=== PATIENT | female | born 2000 | race Caucasian/White ===

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

== ENCOUNTER 2022-01-09 11:23 | Emergency (ER) | payer BC, MEDICAID, SELFPAY ==
[2022-01-09 11:25] VITALS: BP 100/55; PULSE 62; RESP 16; TEMP 36.6; O2SAT 98; BMI 22.4; BMI 23.2
[2022-01-09 11:41] LABS: Microscopic, Urine URINE MICROSCOPIC (MICROSCOPIC)
[2022-01-09 11:48] LABS: Appearance,Urine CLEAR (Clear); Bilirubin,Urine Negative (Negative); Blood, Urine Negative (Negative); Color,Urine YELLOW (Yellow); Glucose,Urine (UA) Negative (Negative); Ketones,Urine Negative (Negative); Leukocyte Esterase,Urine 2+ (Negative); Nitrate,Urine Negative (Negative); Protein,Urine Negative (Negative); Specific Gravity, Urine 1.025 (1.005-1.030); Urobilinogen,Urine 0.2 EU/dl (0.2)
--- NOTE | 2022-01-09 12:13 | PC.NURSE ---
heart tones 152
[2022-01-09 12:14] LABS: Bacteria,Urine Trace /lpf
[2022-01-09 12:17] LABS: Basophils % 0.7 % (0.1-2.0); Eosinophils # 0.1 K/mm3 (0.0-0.4); Hemoglobin 12.9 g/dL (12.2-16.2); Lymphocytes # 0.9 K/mm3 (0.7-4.5); Lymphocytes % 17.3 % (10-50); Mean Corpuscular HGB Conc 33.9 g/dL (31.8-35.4); Mean Corpuscular Hemoglobin 30.3 pg (27.0-31.2); Mean Corpuscular Volume 89.2 fl (81-99); Mean Platelet Volume 8.7 fl (7.4-10.4); Monocytes # 0.3 K/mm3 (0.1-1.0); Neutrophils % 75.9 % (37.0-80.0); Platelet Count 254 K/mm3 (142-424); Red Blood Count 4.26 M/mm3 (4.20-5.40); White Blood Count 5.2 K/mm3 (4.5-13.0)
[2022-01-09 12:24] LABS: Chloride 101 mmol/L (98-107); Potassium 3.5 mmoL/L (3.5-5.1); Sodium 136 mmol/L (136-145)
[2022-01-09 12:26] LABS: Creatinine Clearance Estimated 206 mL/min (50-200); Estimated Glomerular Filt Rate 206 ml/min (>60); GFR (African American) 249 ML/MIN (>60)
[2022-01-09 12:27] LABS: Alanine Aminotransferase 22 U/L (12-78); Albumin/Globulin Ratio 1.4 (1.1-1.8); Alkaline Phosphatase 66 U/L (38-126); Anion Gap 12.5 mEq/L (5-15); Aspartate Amino Transferase 28 U/L (14-36); Calcium 8.5 mg/dl (8.4-10.2); Carbon Dioxide 26 mmol/L (22.0-30.0); Globulin 2.8 g/dL (1.3-3.2); Glucose 80 mg/dl (74-100); Lipase 31 U/L (23-300); Total Protein,Serum 6.8 g/dl (6.3-8.2)
[2022-01-09 12:30] LABS: Bilirubin,Total < 0.1 mg/dl (0.2-1.3); Blood Urea Nitrogen < 2 mg/dl (7-17)
--- NOTE | 2022-01-09 12:31 | US_ITS ---
FINAL REPORT CLINICAL HISTORY: epigastric pain, 15 weeks FINDINGS: Sonographic images of the right upper quadrant were obtained. The pancreas is partially obscured.The liver has an unremarkable appearance. The gallbladder is collapsed without well-defined gallstones. There is no evidence of biliary ductal dilatation.The common duct measures 2 mm. Limited images of the right kidney are unremarkable. IMPRESSION: Gallbladder is collapsed without well-defined gallstones. Reviewed, Interpreted and Dictated by Braden Burrell III, MD Transcribed by Nneka John Authenticated and [facility]
--- NOTE | 2022-01-09 12:31 | HMH.EDGENADL ---
Discharge Plan Disposition Patient Disposition: Home, Self-Care Condition: Good Prescriptions Prescriptions: No Action PNV cmb#95-ferrous fumarate-FA 28 mg iron- 800 mcg tablet 1 tab PO DAILY promethazine 25 mg tablet 25 mg PO TID PRN (Reason: nausea and vomiting) Qty: 20 2RF Referrals Follow up/Referrals: Provider,Referral, [Primary Care Provider] - See instructions Activity Restrictions/Add. Instructions Additional Instructions/Restrictions: Low-fat diet. Additional instructions for ABDOMINAL PAIN: See your WOOL BRUSHER as soon as possible for further evaluation. Return immediately if worsening abdominal pain, vomiting, shortness of breath, fever, vomiting of blood or abdominal distention. Clinical Impressions Clinical Impression: Biliary colic, Instructions Patient Instructions: DI for Acute Abdominal Pain Discharge ED Provider: Colt Zhu General Adult HPI General Chief complaint: Abdominal Pain Stated complaint: abdominal pain, 15 weeks Time Seen by Provider: 01/09/22 12:15 Mode of Arrival: Ambulatory Source of Information: Patient Limitations: No Limitations Description of Symptoms (Recalled from ER Triage Doc. by RN): to ed per pvt car with c/o upper, epigastric pain x several months. pt currently approx 15 weeks preg states she has seen academic affairs assistant for same c/o called office today and told to come to ed for eval. pt c/o nausea. pt denies any fever,chills, vomiting, lower abd pain or vag discharge. pt G2, P1, AB0. History of Present Illness HPI narrative: Patient has epigastric pain. States that it has been present ever since she woke up this morning, but seems to be improving now. Associated with nausea, but no vomiting. She has been having similar episodes of pain ever since she got 15 weeks ago. She says she gets episodes 1-3 times per week, usually only lasting 10 to 15 minutes. This is the longest episode. She has seen her WOOL BRUSHER and discussed the abdominal pain. She says that she was told to take Tums and that it might be reflux. She has tried that without relief. Last oral intake 7 PM last night. Related Data Home Medications Medication Instructions Recorded Confirmed vit no.95-ferrous 1 tab PO DAILY 11/29/21 12/27/21 fumarate 28 mg-folic acid 800 mcg tablet Previous Rx's Medication Instructions Recorded promethazine 25 mg tablet 25 mg PO TID PRN nausea and 11/29/21 vomiting #20 tabs Allergies Allergy/AdvReac Type Severity Reaction Status Date / Time No Known Allergies Allergy Verified 12/27/21 19:13 [facility] Medical History (Updated 01/09/22 @ 13:29 by Colt Zhu MD) Rubella non-immune status, antepartum Teen Social History Smoking Status: Never smoker alcohol intake: never substance use type: denies use current occupational status: unemployed Travel in the last 8 weeks: None ROS Obtained: Yes Systems reviewed as appropriate & no additional complaints except as documented Constitutional Constitutional: Denies fever(s) Gastrointestinal Gastrointestingal: Reports abdominal pain and nausea; Denies constipation, diarrhea or vomiting Genitourinary Female Genitourinary: Denies difficulty voiding, Denies dysuria and Denies flank pain Musculoskeletal Musculoskeletal: Denies numbness Neurologic Neurologic: Denies numbness Physical Exam General General appearance: alert and in no apparent distress Head Head exam: atraumatic and normocephalic Eye Eye exam: Present normal appearance and EOMI ENT ENT exam: Present mucous membranes moist Neck Neck exam: Present normal inspection and trachea midline Chest Chest inspection: Present normal inspection and symmetric chest wall rise Respiratory Respiratory exam: Present normal lung sounds bilaterally; Absent respiratory distress Cardiovascular Cardiovascular exam: Present regular
[2022-01-09 14:02] VITALS: BP 111/65; PULSE 78; RESP 16; TEMP 36.6; O2SAT 98
== END 2022-01-09 14:04 | disposition home or self-care (01) ==
PROVIDERS: Emergency Provider Emergency Medicine
DX: O26.892 Other specified pregnancy related conditions, second trimester (principal); K80.50 Calculus of bile duct without cholangitis or cholecystitis without obstruction; Z3A.15 15 weeks gestation of pregnancy
CPT/HCPCS: 76705; 80053; 81001; 83690; 85025; 87086; 99284

== ENCOUNTER → 2022-03-02 13:51 | Outpatient (CLI) | payer MEDICAID, SELFPAY ==
--- NOTE | 2022-03-02 13:51 | US_ITS ---
FINAL REPORT CLINICAL HISTORY: 20 week anatomy scan FINDINGS: There is a single live intrauterine gestation. Presentation is breech. The cervix is closed and measures 3.2 cm. Placenta is fundal, grade 1. movement is noted. heart rate is 149. Three-vessel cord with satisfactory umbilical cord insertion. Four-chamber heart is noted. brain and ventricles are unremarkable. Chest and diaphragm are unremarkable. ABDOMEN: Both kidneys are unremarkable. Stomach is unremarkable. SPINE: No anomalies identified. Both arms and legs noted. AMNIOTIC FLUID: Appropriate amount. MEASUREMENTS: ULTRASOUND AGE: 20 weeks 6 days. GESTATION AGE: 21 weeks 3 days. ESTIMATED WEIGHT: 389 g GROWTH PERCENTILE: 22 % BPD: 4.71 cm corresponding to 20 weeks 2 days. OFD: 6.44 cm corresponding to 21 weeks 3 days. HC: 17.72 cm corresponding to 20 weeks 2 days. AC: 15.46 cm corresponding to 20 weeks 5 days. FL: 3.65 cm corresponding to 21 weeks 5 days. CEREBELLUM: 2.08 cm corresponding to 21 weeks 1 day. HUMERUS: 3.45 cm corresponding to 21 weeks 6 days. HC/AC: 1.15 CI: 73% FL/BPD: 77% FL/AC: 24% IMPRESSION: Single living IUP with an ultrasound age of 20 weeks 6 days. Reviewed, Interpreted and Dictated by Braden Burrell III, MD Transcribed by Alecia Lucero Authenticated and [facility]
== END ==
PROVIDERS: PCP Obstetrics & Gynecology; Visit Provider Obstetrics & Gynecology
DX: Z34.90 Encounter for supervision of normal pregnancy, unspecified, unspecified trimester (principal); Z3A.20 20 weeks gestation of pregnancy
CPT/HCPCS: 76811

== ENCOUNTER → 2022-04-06 14:47 | Outpatient (CLI) | payer MEDICAID, SELFPAY ==
[2022-04-06 15:15] LABS: Basophils % 0.5 % (0.1-2.0); Eosinophils % 0.3 % (0.1-12.0); Hematocrit 33.5 % (37.0-47.0); Hemoglobin 11.2 g/dL (12.2-16.2); Lymphocytes # 1.5 K/mm3 (0.7-4.5); Lymphocytes % 21.8 % (10-50); Mean Corpuscular HGB Conc 33.4 g/dL (31.8-35.4); Mean Corpuscular Hemoglobin 28.7 pg (27.0-31.2); Mean Platelet Volume 8.2 fl (7.4-10.4); Monocytes # 0.3 K/mm3 (0.1-1.0); Monocytes % 3.9 % (1.7-9.3); Neutrophils # 5.2 K/mm3 (1.8-7.8); Neutrophils % 73.6 % (37.0-80.0); Platelet Count 318 K/mm3 (142-424); Red Cell Distribution Width 12.9 % (11.5-17.5)
[2022-04-06 15:54] LABS: Glucose,Fasting 66 mg/dl (74-100)
[2022-04-06 16:41] LABS: Glucose 1 Hour 127 mg/dL (74-100)
== END ==
PROVIDERS: PCP Obstetrics & Gynecology; Visit Provider Obstetrics & Gynecology
DX: Z34.90 Encounter for supervision of normal pregnancy, unspecified, unspecified trimester (principal); Z3A.19 19 weeks gestation of pregnancy
CPT/HCPCS: 36415; 82951; 85025

== ENCOUNTER → 2022-04-19 13:45 | Outpatient (CLI) | payer MEDICAID, SELFPAY ==
--- NOTE | 2022-04-19 13:45 | US_ITS ---
FINAL REPORT TECHNIQUE: Transvaginal ultrasound imaging of the pelvis was obtained. CLINICAL HISTORY: amniotic fluid FINDINGS: A single, living intrauterine is identified. Average ultrasound age is 27 weeks 5 days gestation. Estimated weight is 2 lb 5 oz. fetus is in cephalic position. The placenta is grade 2 and anterior. MEHRAN is borderline at 9. Heart rate is identified at 127 beats per minute. HC/acromioclavicular: 1.16 CI: 77% FL/BPD: 75% FL/AC: 24% IMPRESSION: Borderline amniotic fluid index at 9.34. Reviewed, Interpreted and Dictated by Braden Burrell III, MD Transcribed by Loretta Chavez Authenticated and [facility]
== END ==
PROVIDERS: PCP Obstetrics & Gynecology; Visit Provider Obstetrics & Gynecology
DX: O28.8 Other abnormal findings on antenatal screening of mother (principal)
CPT/HCPCS: 76816

== ENCOUNTER → 2022-05-28 11:15 | Outpatient (CLI) | payer MEDICAID, SELFPAY ==
[2022-05-28 11:26] LABS: Fetal Membrane Rupture (Rapid) Negative (Negative)
== END ==
PROVIDERS: Visit Provider Obstetrics & Gynecology
DX: Z34.90 Encounter for supervision of normal pregnancy, unspecified, unspecified trimester (principal)
CPT/HCPCS: 84112

== ENCOUNTER 2024-03-02 10:13 | Outpatient (CLI) | payer MEDICAID, SELFPAY | END 2024-03-02 23:59 | disposition home or self-care (01) | LOC: LAB.DROPOF 03-03 10:13 | PROVIDERS: PCP Obstetrics & Gynecology; Visit Provider Obstetrics & Gynecology | DX: Z34.90 Encounter for supervision of normal pregnancy, unspecified, unspecified trimester (principal); Z3A.23 23 weeks gestation of pregnancy | CPT/HCPCS: 87086 ==

== ENCOUNTER 2024-03-06 12:16 | Outpatient (CLI) | payer MEDICAID, SELFPAY ==
[2024-03-06 12:44] LABS: Basophils % 0.3 % (0.1-2.0); Eosinophils % 0.6 % (0.1-12.0); Hemoglobin 12.3 g/dL (12.2-16.2); Lymphocytes # 1.3 K/mm3 (0.7-4.5); Lymphocytes % 23.2 % (10-50); Mean Corpuscular HGB Conc 35.2 g/dL (31.8-35.4); Mean Corpuscular Hemoglobin 30.4 pg (27.0-31.2); Mean Corpuscular Volume 86.3 fl (81-99); Mean Platelet Volume 8.3 fl (7.4-10.4); Monocytes # 0.2 K/mm3 (0.1-1.0); Monocytes % 3.9 % (1.7-9.3); Neutrophils # 4.1 K/mm3 (1.8-7.8); Platelet Count 235 K/mm3 (142-424); Red Blood Count 4.06 M/mm3 (4.20-5.40); Red Cell Distribution Width 13.4 % (11.5-17.5); White Blood Count 5.7 K/mm3 (4.8-10.8)
[2024-03-06 15:30] LABS: HIV (1&2) Antibody Rapid NONREACTIVE (NONREACTIVE)
[2024-03-08 07:27] LABS: Rubella Antibodies, IgG <0.90 index (Immune >0.99)
[2024-03-08 09:24] LABS: HCV Ab Non Reactive (Non Reactive); Hepatitis B Surface Antigen Negative (Negative)
== END 2024-03-06 23:59 | disposition home or self-care (01) ==
LOC: LAB 12:17
PROVIDERS: PCP Nurse Practitioner Family; Visit Provider Obstetrics & Gynecology
DX: Z34.90 Encounter for supervision of normal pregnancy, unspecified, unspecified trimester (principal)
CPT/HCPCS: 36415; 85025; 86762; 86803; 86850; 87340; 87389

== ENCOUNTER 2024-04-17 09:52 | Outpatient (CLI) | payer MEDICAID, SELFPAY ==
--- NOTE | 2024-04-17 09:53 | US_ITS ---
PROCEDURE: US OB /MATERNAL DETAIL CLINICAL INDICATION: 20 wk + Anatomy Scan-US OB Complete COMPARISON: FINDINGS: Transabdominal sonographic images of the pelvis were obtained. From her established due date she is 20 weeks 5 days. Single viable intrauterine gestation. Breech position. Placenta: Anteriorplacenta grade 1. There is an average amount of fluid. The cervix appears satisfactory. Closed and measuring 3.05 cm in length. Complete survey performed and was unremarkable on the submitted images as in PACS. No discrete anomalies identified on survey imaging by technologist. Active fetus. Three-vessel cord with satisfactory umbilical cord insertion. 4- chamber heart noted. Situs, aortic arch, LVOT, RVOT, three-vessel view appear normal. There is an intracardiac echogenic foci measuring 2.4 mm in size Survey of brain & ventricles Unremarkable. Cerebellum, thalamus, choroid plexus, cisterna magna appear normal. Face and neck survey unremarkable. Profile, nasion, lips and nose appeared normal. Diaphragm and chest views unremarkable. Abdomen: Both kidneys noted and unremarkable. Stomach and bladder noted and satisfactory. Spine: Survey of the spine satisfactory with no anomalies identified nor imaged. Cervical, thoracic, lower spine appear normal. Both arms and legs noted. Amniotic Fluid: Adequate. MVP 4.83 cm Measurements: Average ultrasound age 20weeks 4days. Estimated due date by ultrasound age 0508/31/2024. Estimated weight 378g BPD = 19weeks 6days HC = 20weeks 1day AC = 21weeks 3days FL = 20weeks 4days Growth Percentile= 50 Heart Rate = 136bpm Cerebellum = 19weeks 2days Humerus = 21weeks 3days HC/AC is 1.08 FL/BPD is 0.73 FL/AC is 0.21 IMPRESSION: 1. Viable fetus in the breech presentation with an anterior placenta grade 1. 2. The fluid is within normal limits with an MVP 4.83 cm. 3. Anatomical scan appears normal. 4. There is a 2.4 mm intracardiac echogenic foci within the left ventricle and would suggest follow-up at 28 weeks. 5. biometry is consistent with a dates. Dictated by: Hill Duffy MD 04/17/2024 18:45 Hill Duffy MD in [place] 04/17/2024 18:45
== END 2024-04-17 23:59 | disposition home or self-care (01) ==
LOC: RAD 09:53
PROVIDERS: PCP Nurse Practitioner Family; Visit Provider Obstetrics & Gynecology
DX: O99.332 Smoking (tobacco) complicating pregnancy, second trimester (principal); Z3A.20 20 weeks gestation of pregnancy; Z36.3 Encounter for antenatal screening for malformations; Z13.71 Encounter for nonprocreative screening for genetic disease carrier status
CPT/HCPCS: 76811

== ENCOUNTER 2024-04-22 10:37 | Outpatient (CLI) | payer MEDICAID, SELFPAY ==
[2024-04-22 10:55] LABS: Basophils % 0.4 % (0.1-2.0); Eosinophils % 0.3 % (0.1-12.0); Hematocrit 34.3 % (37.0-47.0); Hemoglobin 11.4 g/dL (12.2-16.2); Lymphocytes # 1.3 K/mm3 (0.7-4.5); Lymphocytes % 19.6 % (10-50); Mean Corpuscular HGB Conc 33.2 g/dL (31.8-35.4); Mean Corpuscular Volume 87.3 fl (81-99); Mean Platelet Volume 9.9 fl (7.4-10.4); Monocytes # 0.4 K/mm3 (0.1-1.0); Neutrophils # 4.9 K/mm3 (1.8-7.8); Neutrophils % 73.4 % (37.0-80.0); Platelet Count 241 K/mm3 (142-424); Red Blood Count 3.93 M/mm3 (4.20-5.40); Red Cell Distribution Width 12.3 % (11.5-17.5); White Blood Count 6.7 K/mm3 (4.8-10.8)
[2024-04-22 11:41] LABS: Alanine Aminotransferase 17 U/L (12-78); Albumin Level 3.7 g/dl (3.5-5.0); Alkaline Phosphatase 63 U/L (38-126); Anion Gap 11.1 mEq/L (5-15); Aspartate Amino Transferase 26 U/L (14-36); Bilirubin,Direct 0.1 mg/dl (0.0-0.4); Bilirubin,Indirect 0.1 mg/dL (0.0-0.9); Bilirubin,Total 0.2 mg/dl (0.2-1.3); Bilirubin,Unconjugated 0.1 mg/dL (0.0-1.1); Blood Urea Nitrogen 8 mg/dl (7-17); Calcium 8.8 mg/dl (8.4-10.2); Carbon Dioxide 23 mmol/L (22.0-30.0); Chloride 104 mmol/L (98-107); Estimated Glomerular Filt Rate 201 ml/min (>60); GFR (African American) 244 ML/MIN (>60); Glucose 65 mg/dl (74-100); Potassium 4.1 mmoL/L (3.5-5.1); Sodium 134 mmol/L (136-145); Total Protein,Serum 6.2 g/dl (6.3-8.2)
[2024-04-22 11:57] LABS: Free T4 (Free Thyroxine) 0.85 ng/dl (0.78-2.19)
[2024-04-22 12:12] LABS: Thyroid Stimulating Hormone 2.09 uIU/mL (0.465-4.68)
== END 2024-04-22 23:59 | disposition home or self-care (01) ==
LOC: LAB 10:38
PROVIDERS: PCP Nurse Practitioner Family; Visit Provider Physician Assistant
DX: R42 Dizziness and giddiness (principal)
CPT/HCPCS: 36415; 80048; 80076; 84439; 84443; 85025

== ENCOUNTER 2024-05-01 08:37 | Outpatient (CLI) | payer MEDICAID, SELFPAY ==
--- NOTE | 2024-05-01 08:42 | CA_ITS ---
APPROVED REPORT EXAM: Comprehensive 2D, Doppler, and color-flow Echocardiogram Food And Nutrition Teacher: FELECIA Santoyo, RVS Ht: 5 ft 2 in Wt: 118lbs BSA: 1.53 BP: 91/55 mmHg Rhythm: Bradycardia Indications: 21weeks , 3rd , Syncope, Smoker, murmur, bradycardia, hypotension 2D Dimensions Left Atrium 2.88 cm F: 2.7 - 3.8 LA Volume 42.10 mL LA Volume Index 27.100228 mL/m2 (M/F) 16-34 M-Mode Dimensions RVDd 2.18 cm (0.9-2.6) LA Diam 2.65 cm (1.9-4.0) LVDd 4.27 cm (3.5-5.7) LVDs 2.87 cm (3.5-5.7) IVSd 0.78 cm (0.6-1.1) PWd 0.52 cm (0.6-1.1) EF (Teich) 61.60% EPSs 0.52 cm FS 32.80% EDV (Teich) 81.70 mL TAPSE 2.22 (<1.7) ESV (Teich) 31.40 mL LV Diastology E Decel Time 250 (160-240 msec) E/A Ratio 2.96 MED A' 8.40 cm/s LAT A' 8.70 cm/s Aortic Valve DANAE Index 0.94 cm2/m2 AoV Peak Josue. 176.0 (50-130 cm/s) AO Peak GR. 12.40 mmHg AO Mean GR. 6.00 (<5 mmHg) AO VTI 36.9 (18-25 cm) DANAE (VTI) 1.46 (2.5-4.5 cm2) Mitral Valve MV A Velocity 31.0 (40-130 cm/s) E/A Ratio 2.96 Pulmonary Valve PV Peak Velocity 115.0 (50-150 cm/s) Tricuspid Valve TR P. Velocity 206.00 cm/s RAP Estimate 10.00 mmHg RVSP 27.10 mmHg Left Ventricle The left ventricle is normal size. The left ventricular systolic function is normal. The left ventricular ejection fraction is within the normal range. There is normal left ventricular wall thickness. There is normal LV segmental wall motion. The left ventricular diastolic function is normal. LVEF is 60%. Right Ventricle The right ventricle is normal size. The right ventricular systolic function is normal. Atria The left atrium size is normal. The right atrium size is normal. There is no Doppler evidence of interatrial shunt. Aortic Valve The aortic valve opens well. There is no aortic valvular stenosis. No aortic regurgitation is present. Mitral Valve The mitral valve is normal in structure. No evidence of mitral valve stenosis. Trace mitral regurgitation. Tricuspid Valve Tricuspid valve is grossly normal in structure and function. Mild tricuspid regurgitation. RVSP is normal. Pulmonic Valve The pulmonary valve is normal in structure. Trace pulmonic regurgitation. Great Vessels The aortic root is normal in size. The ascending aorta is normal in size. IVC is normal in size and collapses >50% with inspiration. Pericardium There is no pericardial effusion. Other Information Study Quality: Adequate Conclusion Normal biventricular systolic function. Mild TR. Electronically signed by : Ana Rosa Schreiber MD 05/09/2024 23:30:42
== END 2024-05-01 23:59 | disposition home or self-care (01) ==
LOC: RT 08:38
PROVIDERS: PCP Nurse Practitioner Family; Visit Provider Physician Assistant
DX: I36.1 Nonrheumatic tricuspid (valve) insufficiency (principal); R42 Dizziness and giddiness; R01.1 Cardiac murmur, unspecified
CPT/HCPCS: 93306

== ENCOUNTER 2024-05-25 10:05 | Outpatient (CLI) | payer MEDICAID, SELFPAY ==
[2024-05-25 11:36] LABS: Glucose 1 Hour 85 mg/dL (74-100)
[2024-05-25 11:37] LABS: Basophils % 0.5 % (0.1-2.0); Eosinophils % 0.6 % (0.1-12.0); Hematocrit 34.6 % (37.0-47.0); Hemoglobin 11.3 g/dL (12.2-16.2); Lymphocytes # 1.4 K/mm3 (0.7-4.5); Lymphocytes % 22.3 % (10-50); Mean Corpuscular HGB Conc 32.7 g/dL (31.8-35.4); Mean Corpuscular Hemoglobin 28.4 pg (27.0-31.2); Mean Corpuscular Volume 86.9 fl (81-99); Mean Platelet Volume 10.2 fl (7.4-10.4); Monocytes # 0.4 K/mm3 (0.1-1.0); Monocytes % 6.9 % (1.7-9.3); Neutrophils # 4.3 K/mm3 (1.8-7.8); Neutrophils % 69.2 % (37.0-80.0); Platelet Count 221 K/mm3 (142-424); Red Blood Count 3.98 M/mm3 (4.20-5.40); Red Cell Distribution Width 12.5 % (11.5-17.5); White Blood Count 6.2 K/mm3 (4.8-10.8)
[2024-05-25 15:12] LABS: RPR W/RFX Titers Nonreactive (Nonreactive)
== END 2024-05-25 23:59 | disposition home or self-care (01) ==
LOC: LAB 10:06
PROVIDERS: PCP Nurse Practitioner Family; Visit Provider Obstetrics & Gynecology
DX: R42 Dizziness and giddiness (principal); R06.02 Shortness of breath; R53.83 Other fatigue; R20.0 Anesthesia of skin; R20.2 Paresthesia of skin
CPT/HCPCS: 36415; 82947; 85025; 86592; 93270

== ENCOUNTER 2024-06-03 11:42 | Outpatient (CLI) | payer MEDICAID, SELFPAY ==
[2024-06-03 12:01] VITALS: BMI 23.3
[2024-06-03] MEDS: LACTATED RINGERS 1000ML 1,000 ML 999 ML IV (12:07)
[2024-06-03 12:08] VITALS: BP 125/67; PULSE 82; RESP 17; TEMP 36.8; O2SAT 100
--- NOTE | 2024-06-03 12:30 | US_ITS ---
PROCEDURE: US OB TRANSVAGINAL CLINICAL INDICATION: Fall COMPARISON: US US OB /MATERNAL DETAIL from 04/17/2024 FINDINGS: Transvaginal sonographic images of the cervix were obtained. From her established due date she is 27weeks 4days. The following parameters are obtained: Viable Fetus in the cephalic presentation . Transvaginal images of the cervix were obtained. The cervix measures 2.06 cm-2.40 cm. Cervix appears closed. There is no funneling or opening of the internal os. There is no change in the cervical length with Valsalva maneuver. IMPRESSION: 1. Fetus in the cephalic presentation. 2. The cervix measures 2.06-2.40 cm transvaginally. 3. There is no significant funneling of the cervix. 4. The cervix remains the same length during Valsalva. Dictated by: Hill Duffy MD 06/03/2024 13:39 Hill Duffy MD in [place] 06/03/2024 13:39
--- NOTE | 2024-06-03 12:30 | US_ITS ---
PROCEDURE: US OB FOLLOW UP CLINICAL INDICATION: Fall COMPARISON: US US OB /MATERNAL DETAIL from 04/17/2024 US US OB TRANSVAGINAL from 06/03/2024 FINDINGS: Transabdominal sonographic images of the pelvis were obtained. The following parameters are obtained: From her established due date she is 27weeks 4days Viable fetus in the cephalic presentation with a lateral posterior placenta grade 2. The cervix measures 2.3 cm transvaginally. Estimated weight 987 grams, 2 lb 3 oz Average ultrasound age 27 weeks 3 days. heart rate: 132bpm bpm. BPD: 28weeks 3days, 66 percentile HC: 27weeks 5days, 22 percentile AC: 26weeks 4days, 14 percentile FL: 26weeks 6days, 16 percentile HC/AC: 1.15 FL/BPD: 0.7 FL/AC: 0.23 Growth percentile: 14 Amniotic fluid index: 11.86cm, MVP 4.32 cm. No obvious anomalies evident. profile seen, stomach, bladder, kidneys, three-vessel cord, four chamber heart appear normal. IMPRESSION: 1. Viable fetus in the cephalic presentation with the lateral posterior placenta 2. 2. The fluid is within normal limits with amniotic fluid index 11.86 cm, MVP 4.32 cm. 3. There has been good interval growth with the fetus currently 14th percentile. 4. Limited anatomical scan appears normal. 5. Fetus is active. Dictated by: Hill Duffy MD 06/03/2024 13:45 Hill Duffy MD in [place] 06/03/2024 13:45
[2024-06-03] MEDS: ONDANSETRON 4MG/2ML VIAL 4 MG IV (13:32)
[2024-06-03 13:36] VITALS: BMI 23.3
== END 2024-06-03 16:54 | disposition home or self-care (01) ==
LOC: OBOUT 11:44 → OB 11:45
PROVIDERS: PCP Nurse Practitioner Family; Visit Provider Nurse Practitioner Obstetrics & Gynecology
DX: O9A.212 Injury, poisoning and certain other consequences of external causes complicating pregnancy, second trimester (principal); M25.552 Pain in left hip; W18.39XA Other fall on same level, initial encounter; Y92.012 Bathroom of single-family (private) house as the place of occurrence of the external cause; Z3A.27 27 weeks gestation of pregnancy; W54.1XXA Struck by dog, initial encounter
CPT/HCPCS: 76816; 76817; G0463; J2405; J7120

== ENCOUNTER 2024-06-06 13:03 | Outpatient (CLI) | payer MEDICAID, SELFPAY ==
[2024-06-06 13:44] VITALS: BP 118/72; PULSE 86; RESP 18; TEMP 36.7; O2SAT 100; BMI 23.0
--- NOTE | 2024-06-06 13:54 | ECG_ITS ---
APPROVED REPORT Exam: Resting ECG HR:73 bpm ECG Measurements Heart Rate 73 AXES ND 119 P 10 QRSd 90 QRS 93 QT 359 T 14 QTc 386 Conclusion SINUS RHYTHM WITH SINUS ARRHYTHMIA WITH SHORT ND INTERVAL BORDERLINE RIGHT AXIS DEVIATION [QRS AXIS > 90] BORDERLINE ECG UNCONFIRMED REPORT Electronically signed by : Anthony Scherer MD 06/07/2024 16:10:59
[2024-06-06 14:08] LABS: Basophils % 0.5 % (0.1-2.0); Eosinophils # 0.1 K/mm3 (0.0-0.4); Eosinophils % 0.8 % (0.1-12.0); Hematocrit 30.6 % (37.0-47.0); Hemoglobin 10.2 g/dL (12.2-16.2); Lymphocytes # 1.3 K/mm3 (0.7-4.5); Lymphocytes % 19.7 % (10-50); Mean Corpuscular HGB Conc 33.3 g/dL (31.8-35.4); Mean Corpuscular Hemoglobin 28.4 pg (27.0-31.2); Mean Corpuscular Volume 85.2 fl (81-99); Mean Platelet Volume 10.2 fl (7.4-10.4); Monocytes # 0.5 K/mm3 (0.1-1.0); Monocytes % 7.9 % (1.7-9.3); Neutrophils # 4.7 K/mm3 (1.8-7.8); Neutrophils % 70.3 % (37.0-80.0); Platelet Count 211 K/mm3 (142-424); Red Blood Count 3.59 M/mm3 (4.20-5.40); Red Cell Distribution Width 12.2 % (11.5-17.5); White Blood Count 6.6 K/mm3 (4.8-10.8)
[2024-06-06] MEDS: LACTATED RINGERS 1000ML 500 ML 999 ML IV (14:45)
[2024-06-06 14:51] LABS: Albumin Level 3.4 g/dl (3.5-5.0); Chloride 103 mmol/L (98-107); Potassium 4.1 mmoL/L (3.5-5.1); Sodium 133 mmol/L (136-145)
[2024-06-06 14:54] LABS: Alanine Aminotransferase 16 U/L (12-78); Albumin/Globulin Ratio 1.3 (1.1-1.8); Alkaline Phosphatase 82 U/L (38-126); Anion Gap 9.1 mEq/L (5-15); Aspartate Amino Transferase 26 U/L (14-36); Bilirubin,Total 0.2 mg/dl (0.2-1.3); Blood Urea Nitrogen 6 mg/dl (7-17); Calcium 8.9 mg/dl (8.4-10.2); Carbon Dioxide 25 mmol/L (22.0-30.0); Creatinine Clearance Estimated 201 mL/min (50-200); Estimated Glomerular Filt Rate 201 ml/min (>60); GFR (African American) 244 ML/MIN (>60); Globulin 2.6 g/dL (1.3-3.2); Glucose 77 mg/dl (74-100)
[2024-06-06 14:55] LABS: Magnesium 1.5 mg/dl (1.6-2.3)
== END 2024-06-06 16:00 | disposition home or self-care (01) ==
LOC: OBOUT 13:05 → OB 13:05
PROVIDERS: PCP Nurse Practitioner Family; Visit Provider Obstetrics & Gynecology
DX: O26.52 Maternal hypotension syndrome, second trimester (principal); R55 Syncope and collapse; Z3A.27 27 weeks gestation of pregnancy
CPT/HCPCS: 59025; 80053; 83735; 85025; J7120

== ENCOUNTER 2024-06-18 10:45 | Outpatient (CLI) | payer MEDICAID, SELFPAY ==
[2024-06-18 10:53] VITALS: BMI 23.8
[2024-06-18 11:35] LABS: Basophils % 0.3 % (0.1-2.0); Eosinophils % 0.2 % (0.1-12.0); Hematocrit 33.5 % (37.0-47.0); Hemoglobin 11.1 g/dL (12.2-16.2); Lymphocytes # 1.2 K/mm3 (0.7-4.5); Lymphocytes % 18.9 % (10-50); Mean Corpuscular HGB Conc 33.1 g/dL (31.8-35.4); Mean Corpuscular Volume 84.4 fl (81-99); Mean Platelet Volume 10.4 fl (7.4-10.4); Monocytes # 0.5 K/mm3 (0.1-1.0); Monocytes % 7.3 % (1.7-9.3); Neutrophils # 4.8 K/mm3 (1.8-7.8); Platelet Count 208 K/mm3 (142-424); Red Blood Count 3.97 M/mm3 (4.20-5.40); Red Cell Distribution Width 12.2 % (11.5-17.5); White Blood Count 6.6 K/mm3 (4.8-10.8)
[2024-06-18] MEDS: MVI, ADULT NO.1 WITH VIT K 10 ML, THIAMINE HCL 100 MG, MAGNESIUM SULFATE 2 GM in LACTAT... 125 ML IV (11:38)
[2024-06-18] MEDS: ONDANSETRON 4MG/2ML VIAL 4 MG IV (11:38)
[2024-06-18 11:40] LABS: Alanine Aminotransferase 17 U/L (12-78); Albumin Level 3.7 g/dl (3.5-5.0); Albumin/Globulin Ratio 1.3 (1.1-1.8); Alkaline Phosphatase 99 U/L (38-126); Amylase 112 U/L (30-110); Anion Gap 7.9 mEq/L (5-15); Aspartate Amino Transferase 26 U/L (14-36); Bilirubin,Total 0.2 mg/dl (0.2-1.3); Blood Urea Nitrogen 6 mg/dl (7-17); Calcium 8.2 mg/dl (8.4-10.2); Carbon Dioxide 24 mmol/L (22.0-30.0); Chloride 105 mmol/L (98-107); Creatinine Clearance Estimated 207 mL/min (50-200); Estimated Glomerular Filt Rate 201 ml/min (>60); GFR (African American) 244 ML/MIN (>60); Globulin 2.8 g/dL (1.3-3.2); Glucose 73 mg/dl (74-100); Lipase 53 U/L (23-300); Magnesium 1.6 mg/dl (1.6-2.3); Potassium 3.9 mmoL/L (3.5-5.1); Sodium 133 mmol/L (136-145); Total Protein,Serum 6.5 g/dl (6.3-8.2)
[2024-06-18 11:56] VITALS: BP 103/62; PULSE 65; RESP 16; TEMP 36.8; O2SAT 99; BMI 23.8
== END 2024-06-18 15:47 | disposition home or self-care (01) ==
LOC: OBOUT 10:48 → OB 10:49
PROVIDERS: PCP Nurse Practitioner Family; Visit Provider Obstetrics & Gynecology
DX: O21.2 Late vomiting of pregnancy (principal); Z3A.29 29 weeks gestation of pregnancy
CPT/HCPCS: 80053; 82150; 83690; 83735; 85025; G0463; J2405; J3411; J7120

== ENCOUNTER 2024-06-26 08:51 | Outpatient (CLI) | payer MEDICAID, SELFPAY | END 2024-06-26 23:59 | disposition home or self-care (01) | LOC: RT 08:52 | PROVIDERS: PCP Nurse Practitioner Family; Visit Provider Physician Assistant | DX: R00.0 Tachycardia, unspecified (principal) | CPT/HCPCS: 93270 ==

== ENCOUNTER 2024-07-01 12:54 | Outpatient (CLI) | payer MEDICAID, SELFPAY ==
--- NOTE | 2024-07-01 13:00 | US_ITS ---
PROCEDURE: US OB BIOPHYSICAL PROFILE CLINICAL INDICATION: hx of labor/Growth COMPARISON: US US OB FOLLOW UP from 06/03/2024 FINDINGS: Transabdominal sonographic images of the uterus were obtained. From her established due date she is 31weeks 4days. The following parameters are obtained: Viable Fetus in the cephalic presentation with and anterior placenta grade 2. Average ultrasound age is 31weeks 1day Estimated weight 1,560g, 3 lb 7 oz Cervix measures 2.67-2.86 cm. Measurements: heart Rate = 124bpm BPD = 32weeks 0 days, 51 percentile HC = 31weeks 5days, 16 percentile AC = 29weeks 3days, 4 percentile FL = 31weeks 2days, 26 percentile HC/AC is 1.14 FL/BPD is 0.75 FL/AC is 0.24 10 percentile Amniotic fluid index: 11.54cm, MVP 3.71 cm Qualitative AFV:2 Breathing movements: 2 Gross Body Movements: 2 Tone: 2 Biophysical profile score: 8 Doppler evaluation of the umbilical artery: SD ratio: 2.34-3.36. normal Resistive index: 0.63 No obvious anomalies evident.Kidneys, profile, bladder, stomach, three-vessel cord appear normal. IMPRESSION: 1. Viable fetus in the cephalic presentation with a posterior placenta grade 2. 2. The fluid is within normal limits with an amniotic fluid index 11.54 cm, MVP 3.71 cm. 3. Biophysical profile is 8/8 with good breathing movement and movement seen. 4. SD ratio is normal 2.34-3.36. 5. The fetus is currently 10th percentile. There is asymmetric growth resection. Abdominal circumference is 4th percentile and approximately 2 weeks behind. 6. Limited anatomical scan appears normal. Dictated by: Hill Duffy MD 07/01/2024 16:47 Hill Duffy MD in [place] 07/01/2024 16:47
[2024-07-01 14:06] VITALS: BP 124/66; PULSE 76; RESP 16; TEMP 36.7; O2SAT 100; BMI 23.6
[2024-07-01] MEDS: DEXTROSE 5%-LACTATED RINGERS 1,000 ML 999 ML IV (15:31)
== END 2024-07-01 18:00 | disposition home or self-care (01) ==
LOC: RAD 12:55 → OBOUT 13:58 → OB 13:58
PROVIDERS: PCP Nurse Practitioner Family; Visit Provider Nurse Practitioner Obstetrics & Gynecology
DX: O47.03 False labor before 37 completed weeks of gestation, third trimester (principal); Z3A.31 31 weeks gestation of pregnancy
CPT/HCPCS: 76816; 76819; 76820; G0463

== ENCOUNTER 2024-07-02 11:14 | Outpatient (CLI) | payer MEDICAID, SELFPAY ==
[2024-07-02 11:25] VITALS: BP 112/65; PULSE 67; RESP 18; TEMP 36.7; O2SAT 100
[2024-07-02] MEDS: BETAMETHASONE ACET/PHOS 6MG/ML 5ML MDV 12 MG IM (11:35)
== END 2024-07-02 11:38 | disposition home or self-care (01) ==
LOC: OBOUT 11:15
PROVIDERS: PCP Nurse Practitioner Family; Visit Provider Obstetrics & Gynecology
DX: O60.03 Preterm labor without delivery, third trimester (principal); Z3A.31 31 weeks gestation of pregnancy
CPT/HCPCS: 96372; J0702

== ENCOUNTER 2024-07-03 10:48 | Outpatient (CLI) | payer MEDICAID, SELFPAY ==
[2024-07-03] MEDS: BETAMETHASONE ACET/PHOS 6MG/ML 5ML MDV 12 MG IM (11:07)
== END 2024-07-03 11:10 | disposition home or self-care (01) ==
LOC: OBOUT 10:50
PROVIDERS: PCP Nurse Practitioner Family; Visit Provider Obstetrics & Gynecology
DX: O60.03 Preterm labor without delivery, third trimester (principal); Z3A.31 31 weeks gestation of pregnancy
CPT/HCPCS: 96372; J0702

== ENCOUNTER 2024-07-13 13:23 | Outpatient (CLI) | payer MEDICAID, SELFPAY ==
--- NOTE | 2024-07-13 13:45 | US_ITS ---
PROCEDURE: US OB BIOPHYSICAL PROFILE CLINICAL INDICATION: Needs 07/13/24 for IGUR with MEHRAN COMPARISON: US US OB /MATERNAL DETAIL from 04/17/2024 US US OB FOLLOW UP from 06/03/2024 US US OB TRANSVAGINAL from 06/03/2024 US US OB BIOPHYSICAL PROFILE from 07/01/2024 FINDINGS: Transabdominal sonographic images of the uterus were obtained. From her established due date she is 33weeks 2days. The following parameters are obtained: Viable Fetus in the cephalic presentation with an anterior placenta grade 2-3. Cervix measures 3.25 cm Measurements: heart Rate = 123bpm Amniotic fluid index: 10.05cm, MVP 4.02 cm Qualitative AFV:2 Breathing movements: 2 Gross Body Movements: 2 Tone: 2 Biophysical profile score: 8 No obvious anomalies evident.Kidneys, profile, stomach, bladder, four-chamber heart, three-vessel cord appear normal. IMPRESSION: 1. Viable fetus in the cephalic presentation with an anterior placenta grade 2-3. 2. The fluid is within normal limits with amniotic fluid index 10.05 cm, MVP 4.02 cm 3. Biophysical profile is 8/8 with good breathing movement and movement seen. 4. Limited anatomical scan appears normal. Dictated by: Hill Duffy MD 07/13/2024 14:13 Hill Duffy MD in [place] 07/13/2024 14:13
--- OUTSIDE RECORDS SUMMARY | 2024-07-16 20:30 | XMS_ITS | Continuity of Care Document ---
Author Organization [facility] Phone Care Team Providers Care Senior Python Developer Name Role Phone LYN HERNADEZ Unavailable LYN HERNADEZ Primary Care VINOD JANE Admitting VINOD JANE Primary Attending [phone] ALLERGIES AND ADVERSE REACTIONS ALLERGIES AND ADVERSE REACTIONS Code System Allergy Substance Adverse Reaction Date Reaction (Severity) Comment Status Reported By Updated By No Known Allergies [id number] on March 29, 2022 11:32:44 PM [facility] ASSESSMENTS ; PROBLEMS PATIENT PROBLEMS Code Description/Comments Category Status Upda alejandro By [id number] active [id number] on Jul 11:45:16 PM [facility] MEDICATIONS HOME MEDICATIONS Status RXNORM ND Medication Dose Route Frequency Dates Comments Reported By Updated By Active [id number] Metoprolol Tartrate Oral Tablet 25 MG 25.0 MG ORAL BID Last Dose: [id number] on July 08, 2024 12:15:47 AM [facility] DISCHARGE MEDICATIONS Status RXNORM NDC Medication Dose Route Frequency Dates Comments Physician Updated By No Discharge Medication Info rmation Available INPATIENT MEDICATIONS Status RXNORM ND Medication Dose Route Frequency Rat e Quantity Dates Comments Physician Updated By Sameer inued [id number] metoprolol tartrat (LOPRESSOR) 25 MG TABS 25.0 MG ORAL TWICE A DAY Start: July 08, 2024 12:00: 00 AM [facility] End: July 08, 2024 12:36: 00 AM [facility] BUCK Alfonso [id number] on July 09, 2024 4:25:00 AM [facility] SOCIAL HISTORY SOCIAL HISTORY SNOMED-CT Social History Element Description Effective Dates Offered Cessation Comment UpdatedBy [id number] Smoking Status Unknown If Ever Smoked SOCIAL HISTORY - Gender Sex: Female SOCIAL HISTORY - Status : status i nformation is not available Intention in Next Year: intention information is not available SOCIAL HISTORY - Sexual Behavior Sexual Orientation Gender Identity SNOMED-CT Description SNO MED -CT Description Activity Level No of Partners Partner Type UpdatedBy Information is not available VITAL SIGNS PATIENT VITAL SIGNS This section displays the mo st recent value for each vital sign as of July 10, 2024 12:49:03 PM [place] Loinc Code Vital Sign Activity Date Result Updated By 8302-2 Body height July 08, 2024 12:15:13 AM [place] 157.48 cm (62.0 in) [id number] on July 08, 2024 12:15:[place] [address]-1 Body mass index (BMI) [Ratio] July 08, 2024 12:15:13 AM [place] 23.79 kg/m2 [id number] on July 08, 2024 12:15:13 AM [facility] 3140-1 Body Surface Area Derived From Formula July 08, 2024 12:15:13 AM [place] 1.5921 m2 [id number] on July 08, 2024 12:15:13 [place] [address]-2 Body weight Measured July 08 12:15:13 AM [place] 59.0 kg (130.0 lb) [id number] on July 08, 2024 12:15:13 AM [facility] 8867-4 Heart rate July 08, 2024 12:01:00 AM UT 78 /min [id number] on July 08, 2024 12:02:22 AM [place] 8480-6 Systolic blood pressure July 08, 2024 12:01:00 AM [place] 120.0 mm[Hg] [id number] on July 08, 2024 12:02:22 AM [facility] PEDIATRIC GROWTH CHART - VITAL SIGNS This section displays Head C ircumference Percentile, Weight for Length Percentile and BMI Percentile Loinc Code Pediatric Measure Age (Months) Result Updat ed By No Pediatric Growth Chart Pe rcentile Information Available. HEALTH CONCERNS Problems Concern Status Health Concern problem infor mation not available. Smoking Status Status Years Used Consumed packs p er day Health Concern smoking histo ry information not available. Family History Concern Status Health Concern family histor y information not available. ENCOUNTERS ENCOUNTER INFORMATION Reason for Visit 32 WEEKS PREG/HIGH B P, 148/105 Admission July 07, 2024 11:20:00 PM UTC [facility] [address] [facility] [id number] Discharge July 08, 2024 12:36:00 AM [place] DI SCHARGED TO HOME OR SELF CARE ENCOUNTER DIAGNOSES Notes information is not karen ilable. Code System Diagnosis Onset Date Diagnosis information is not available. ABSTRACT DIAGNOSES Code System Diagnosis Updated By O16.3 ICD10 UNSPECIFIED MATE RNAL HYPERTENSION, THIRD TRIMESTER [id number] on July 10, 2024 12:48:33 PM UTC O16.3 ICD10 UNSPECIFIED MATE RNAL HYPERTENSION, THIRD TRIMESTER [id number] on July 10, 2024 12:48:33 PM UTC Z3A.32 ICD10 32 WEEKS GESTATION OF PREGNA NCY [id number] on July 10, 2024 12:48:33 PM UTC Z53.29 ICD10 PROCEDURE AND TR EATMENT NOT CARRIED OUT BECAUSE OF PATIENT'S DECISION FOR OTHER REASONS [id number] on July 10, 2024 12:48:33 PM [place] CARE TEAM Care Senior Python Developer Role LYN HERNADEZ Referring LYN HERNADEZ Primary Care VINOD JANE Admitting VINOD JANE Primary Attending HOSPITAL DISCHARGE INSTRUCTION DISCHARGE INSTRUCTION Encounter [id number] Admit Date July 07, 2024 11:20: 00 PM [place] Discharge Date July 08, 2024 12:36: 00 AM [facility] PATIENT EDUCATION SUMMARY Patient/Visit Information: Patient Name: ORTIZ LE Diag: Attending Caregiver: BUCK Alfonso Discharge Instruction Sheets Provided: Discharge Information Fall Prevention in Hospitals and in the Home Suicide - Managing your Feelings 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 Patient Instructions: Followup Appointments/Instructions: CARE TEAM CARE box spring maker Role on Team Status Start Date End Date Update d By BUCK RINCON Attending normal July 08, 2024 12:02:02 AM UT July 08, 2024 12:36:00 AM [facility] [id number] on July 08, 2024 12:02:02 AM [facility] BUCK RINCON Admitting normal July 08, 2024 12:02:02 AM UT July 08, 2024 12:36:00 AM [facility] [id number] on July 08, 2024 12:02:02 AM [facility] MARICARMEN NICHOLSON Referring normal July 07, 2024 11:36:41 PM UTC July 08, 2024 12:36:00 AM UTC [id number] on July 08, 2024 12:02:02 AM UTC EVI RINCON Attending normal July 07 11:36:41 PM UTC July 08, 2024 12:02:02 AM UTC [id number] on July 08, 2024 12:02:02 AM UTC EVI RINCON Admitting normal July 07 11:36:40 PM UTC July 08, 2024 12:02:02 AM UTC [id number] on July 08, 2024 12:02:02 AM UTC MARICARMEN NICHOLSON [facility] normal July 07, 2024 11:23:36 PM UTC July 08, 2024 12:36:00 AM UTC [id number] on July 08, 2024 12:02:02 AM UTC
== END 2024-07-13 23:59 | disposition home or self-care (01) ==
LOC: RAD 13:23
PROVIDERS: PCP Nurse Practitioner Family; Visit Provider Obstetrics & Gynecology
DX: O34.33 Maternal care for cervical incompetence, third trimester (principal); O36.5930 Maternal care for other known or suspected poor fetal growth, third trimester, not applicable or unspecified; Z3A.33 33 weeks gestation of pregnancy; Z87.51 Personal history of pre-term labor
CPT/HCPCS: 76819

== ENCOUNTER 2024-07-20 12:40 | Outpatient (CLI) | payer MEDICAID, SELFPAY ==
--- NOTE | 2024-07-20 13:00 | US_ITS ---
PROCEDURE: US OB BIOPHYSICAL PROFILE CLINICAL INDICATION: Needs 07/20/24 for IGUR with MEHRAN COMPARISON: US US OB /MATERNAL DETAIL from 04/17/2024 US US OB FOLLOW UP from 06/03/2024 US US OB TRANSVAGINAL from 06/03/2024 US OB BIOPHYSICAL PROFILE from 07/01/2024 US OB BIOPHYSICAL PROFILE from 07/13/2024 FINDINGS: Transabdominal sonographic images of the uterus were obtained. From her established due date she is 34weeks 2days. The following parameters are obtained: Viable Fetus in the cephalic presentation with an anterior placenta grade 3. The cervix measures 1.7 cm-2.0 cm transvaginally Measurements: heart Rate = 127bpm Amniotic fluid index: 9.11cm, MVP 3.07 cm Qualitative AFV:2 Breathing movements: 2 Gross Body Movements: 2 Tone: 2 Biophysical profile score: 8 No obvious anomalies evident.Kidneys, profile, bladder, four-chamber heart, three-vessel cord appear normal. IMPRESSION: 1. Viable fetus in the cephalic presentation with an anterior placenta grade 3. 2. The fluid is within normal limits with an amniotic fluid index 9.11 cm, MVP 3.07 cm. 3. Biophysical profile is 8/8 with good breathing movement and movement seen. 4. The cervix appears short measuring 1.7-2.0 cm when measured transvaginally. 5. Limited anatomical scan appears normal. Dictated by: Hill Duffy MD 07/20/2024 16:26 Hill Duffy MD in [place] 07/20/2024 16:26
== END 2024-07-20 23:59 | disposition home or self-care (01) ==
LOC: RAD 12:41
PROVIDERS: PCP Nurse Practitioner Family; Visit Provider Obstetrics & Gynecology
DX: O36.5930 Maternal care for other known or suspected poor fetal growth, third trimester, not applicable or unspecified (principal); O34.33 Maternal care for cervical incompetence, third trimester; I47.29 Other ventricular tachycardia; Z87.51 Personal history of pre-term labor; Z3A.34 34 weeks gestation of pregnancy
CPT/HCPCS: 76819

== ENCOUNTER 2024-07-30 10:03 | Outpatient (CLI) | payer MEDICAID, SELFPAY ==
--- NOTE | 2024-07-30 10:06 | US_ITS ---
PROCEDURE: US OB BIOPHYSICAL PROFILE CLINICAL INDICATION: 4 weeks, BPP/growth/SD ratio/MEHRAN COMPARISON: US US OB /MATERNAL DETAIL from 04/17/2024 US US OB FOLLOW UP from 06/03/2024 US US OB TRANSVAGINAL from 06/03/2024 US US OB BIOPHYSICAL PROFILE from 07/01/2024 US US OB BIOPHYSICAL PROFILE from 07/13/2024 US US OB BIOPHYSICAL PROFILE from 07/20/2024 FINDINGS: Transabdominal sonographic images of the uterus were obtained. From her established due date she is 35weeks 5days. The following parameters are obtained: Viable Fetus in the cephalic presentation with and anterior placenta grade 3. Average ultrasound age is 34weeks 2days Estimated weight 2,224g, 4 lb 14 oz Cervix measures 2.7 cm transvaginally Measurements: heart Rate = 117bpm BPD = 34weeks 5days, 25 percentile HC = 35weeks 0 days, 7 percentile AC = 32weeks 3days, <2 percentile FL = 34weeks 6days, 7 percentile HC/AC is 1.1 FL/BPD is 0.79 FL/AC is 0.24 7 percentile Amniotic fluid index: 8.89cm, MVP 2.88 cm Qualitative AFV:2 Breathing movements: 2 Gross Body Movements: 2 Tone: 2 Biophysical profile score: 8 Doppler evaluation of the umbilical artery: SD ratio: 2.07-2.39 Resistive index: 0.42 No obvious anomalies evident.Kidneys, stomach, bladder, four-chamber heart, three-vessel cord appear normal. IMPRESSION: 1. Viable fetus in the cephalic presentation with an anterior placenta grade 3. 2. The fluid is within normal limits with an amniotic fluid index 8.89 cm, MVP 2.88 cm. 3. Biophysical profile is 8/8 with good breathing movement and movement seen. 4. SD ratio is normal 2.07-2.39. 5. There continues to be worsening asymmetric growth restriction with the abdominal circumference less than 2 percentile. The abdominal circumference is now 3 weeks behind. 6. Limited anatomical scan appears normal. Left ventricular echogenic foci is no longer apparent. Dictated by: Hill Duffy MD 07/31/2024 07:53 Hill Duffy MD in [place] 07/31/2024 07:53
== END 2024-07-30 23:59 | disposition home or self-care (01) ==
LOC: RAD 10:03
PROVIDERS: PCP Nurse Practitioner Family; Visit Provider Obstetrics & Gynecology
DX: O34.33 Maternal care for cervical incompetence, third trimester (principal); O36.5930 Maternal care for other known or suspected poor fetal growth, third trimester, not applicable or unspecified; Z87.51 Personal history of pre-term labor; Z3A.35 35 weeks gestation of pregnancy
CPT/HCPCS: 76816; 76819; 76820; 86403

== ENCOUNTER 2024-07-30 22:39 | Outpatient (CLI) | payer MEDICAID, SELFPAY ==
[2024-07-30 22:42] VITALS: BMI 25.4
[2024-07-30 22:50] VITALS: BP 124/84; PULSE 81; RESP 18; TEMP 36.6; O2SAT 96
[2024-07-30 22:54] VITALS: BP 124/84; PULSE 67; RESP 18; TEMP 36.6; O2SAT 99; BMI 25.5
[2024-07-30 22:57] LABS: Microscopic, Urine URINE MICROSCOPIC (MICROSCOPIC)
[2024-07-30 22:59] LABS: Appearance,Urine CLEAR (Clear); Bilirubin,Urine Negative (Negative); Blood, Urine Negative (Negative); Color,Urine YELLOW (Yellow); Glucose,Urine (UA) 1+ (Negative); Ketones,Urine TRACE (Negative); Leukocyte Esterase,Urine Negative (Negative); Nitrate,Urine Negative (Negative); Protein,Urine TRACE (Negative); Specific Gravity, Urine >= 1.030 (1.005-1.030)
[2024-07-30 23:08] LABS: Bacteria,Urine 1+ /lpf; RBC,Urine Occasional #/hpf (0-3)
[2024-07-30 23:32] LABS: Fetal Membrane Rupture (Rapid) Negative (Negative)
[2024-07-31] MEDS: LACTATED RINGERS 1000ML 1,000 ML 999 ML IV (00:10)
== END 2024-07-31 08:55 | disposition home or self-care (01) ==
LOC: OBOUT 22:41 → OB 22:41
PROVIDERS: PCP Nurse Practitioner Family; Visit Provider Obstetrics & Gynecology
DX: O42.913 Preterm premature rupture of membranes, unspecified as to length of time between rupture and onset of labor, third trimester (principal); Z3A.35 35 weeks gestation of pregnancy
CPT/HCPCS: 81001; 84112; G0463; J7120

== ENCOUNTER 2024-08-04 09:32 | Outpatient (CLI) | payer MEDICAID, SELFPAY ==
[2024-08-04 09:57] VITALS: BP 111/56; PULSE 69; RESP 16; TEMP 37; O2SAT 99; BMI 25.6
[2024-08-04 10:05] LABS: Microscopic, Urine URINE MICROSCOPIC (MICROSCOPIC)
[2024-08-04 10:10] LABS: Appearance,Urine CLEAR (Clear); Bilirubin,Urine Negative (Negative); Blood, Urine Negative (Negative); Color,Urine YELLOW (Yellow); Glucose,Urine (UA) Negative (Negative); Ketones,Urine Negative (Negative); Leukocyte Esterase,Urine TRACE (Negative); Nitrate,Urine Negative (Negative); PH,Urine 8.5 (5.0-8.5); Protein,Urine Negative (Negative); Urobilinogen,Urine 0.2 EU/dl (0.2)
[2024-08-04 10:28] LABS: Amorphous Sediment,Urine 1+ /lpf; Bacteria,Urine Trace /lpf
--- NOTE | 2024-08-04 10:57 | US_ITS ---
PROCEDURE: US OB BIOPHYSICAL PROFILE CLINICAL INDICATION: Placenta and well being COMPARISON: US US OB /MATERNAL DETAIL from 04/17/2024 US US OB TRANSVAGINAL from 06/03/2024 US US OB BIOPHYSICAL PROFILE from 07/01/2024 US OB BIOPHYSICAL PROFILE from 07/13/2024 US OB BIOPHYSICAL PROFILE from 07/20/2024 US OB BIOPHYSICAL PROFILE from 07/30/2024 FINDINGS: Transabdominal sonographic images of the uterus were obtained. From her established due date she is 36weeks 1day. The following parameters are obtained: Viable Fetus in the cephalic presentation with an anterior placenta grade 3. No evidence of abruption. The cervix measures 2.0-2.24 cm transvaginally. There is a small amount of funneling. Measurements: heart Rate = 142bpm Amniotic fluid index: 8.26cm, MVP 5.65 cm Qualitative AFV:2 Breathing movements: 2 Gross Body Movements: 2 Tone: 2 Biophysical profile score: 8 No obvious anomalies evident.Kidneys, stomach, bladder, four-chamber heart, three-vessel cord appear normal. IMPRESSION: 1. Viable fetus in the cephalic presentation with an anterior placenta grade 3. 2. The fluid is within normal limits with an amniotic fluid index 8.25 cm, MVP 5.65 cm. 3. Biophysical profile is 8/8 with good breathing movement and movement seen. 4. Limited anatomical scan appears normal. Dictated by: Hill Duffy MD 08/04/2024 13:51 Hill Duffy MD in [place] 08/04/2024 13:51
== END 2024-08-04 12:30 | disposition home or self-care (01) ==
LOC: OBOUT 09:34 → OB 09:34
PROVIDERS: Obstetrics & Gynecology; PCP Nurse Practitioner Family; Visit Provider Obstetrics & Gynecology
DX: O26.853 Spotting complicating pregnancy, third trimester (principal); Z3A.36 36 weeks gestation of pregnancy
CPT/HCPCS: 76819; 81001; G0463

== ENCOUNTER 2024-08-06 13:32 | Outpatient (CLI) | payer MEDICAID, SELFPAY ==
--- NOTE | 2024-08-06 13:45 | US_ITS ---
PROCEDURE: US OB BIOPHYSICAL PROFILE CLINICAL INDICATION: Needs 08/03/24 for IGUR with MEHRAN COMPARISON: US US OB /MATERNAL DETAIL from 04/17/2024 US US OB TRANSVAGINAL from 06/03/2024 US OB FOLLOW UP from 06/03/2024 US US OB BIOPHYSICAL PROFILE from 07/01/2024 US OB BIOPHYSICAL PROFILE from 07/13/2024 US OB BIOPHYSICAL PROFILE from 07/20/2024 US OB BIOPHYSICAL PROFILE from 07/30/2024 US OB BIOPHYSICAL PROFILE from 08/04/2024 FINDINGS: Transabdominal sonographic images of the uterus were obtained. From her established due date she is 36weeks 3days. The following parameters are obtained: Viable Fetus in the cephalic presentation with and anterior laterally wrapped placenta grade 3. Cervix measures 2.12 cm Measurements: heart Rate = 117bpm Amniotic fluid index: 7.63cm, MVP 2.31 cm Qualitative AFV:2 Breathing movements: 2 Gross Body Movements: 2 Tone: 2 Biophysical profile score: 8 No obvious anomalies evident.Kidneys, bladder, stomach, three-vessel cord appear normal. IMPRESSION: 1. Viable fetus in the cephalic presentation with an anterior laterally wrapped placenta grade 3. 2. The fluid is within normal limits with an amniotic fluid index 7.63 cm, MVP 2.31 cm. 3. Biophysical profile is 8/8 with good breathing movement and movement seen. 4. Limited anatomical scan appears normal. Dictated by: Hill Duffy MD 08/06/2024 14:58 Hill Duffy MD in [place] 08/06/2024 14:58
== END 2024-08-06 23:59 | disposition home or self-care (01) ==
LOC: RAD 13:32
PROVIDERS: PCP Nurse Practitioner Family; Visit Provider Obstetrics & Gynecology
DX: O34.33 Maternal care for cervical incompetence, third trimester (principal); O36.5930 Maternal care for other known or suspected poor fetal growth, third trimester, not applicable or unspecified; Z3A.36 36 weeks gestation of pregnancy
CPT/HCPCS: 76819

== ENCOUNTER 2024-09-11 07:29 | Outpatient (CLI) | payer MEDICAID, SELFPAY ==
[2024-09-11 07:43] VITALS: BMI 22.6
[2024-09-11 08:08] LABS: Urine Pregnancy, HCG Qual. Negative (Negative)
[2024-09-11 08:09] VITALS: BP 102/58; PULSE 58; RESP 16; TEMP 36.6; O2SAT 100
[2024-09-11 08:16] LABS: Chloride 107 mmol/L (98-107); Potassium 3.8 mmoL/L (3.5-5.1); Sodium 138 mmol/L (136-145)
[2024-09-11 08:19] LABS: Blood Urea Nitrogen 4 mg/dl (7-17); Creatinine Clearance Estimated 132 mL/min (50-200); Estimated Glomerular Filt Rate 126 ml/min (>60); GFR (African American) 153 ML/MIN (>60)
[2024-09-11 08:20] LABS: Anion Gap 5.8 mEq/L (5-15); Calcium 8.7 mg/dl (8.4-10.2); Carbon Dioxide 29 mmol/L (22.0-30.0); Glucose 74 mg/dl (74-100)
[2024-09-11 08:25] VITALS: BP 126/66; PULSE 57; RESP 16; O2SAT 97
[2024-09-11 08:28] VITALS: BP 127/78; PULSE 48; RESP 16; O2SAT 100
--- NOTE | 2024-09-11 08:30 | CT_ITS ---
APPROVED REPORT Weight Analyst: CLINICAL INDICATION Chest Pain TECHNIQUE Image Acquisition: A 128 slice MDCT scanner ([employer] Tyromera View) was used for data acquisition. A noncontrast coronary calcium scan was performed. A CT attenuation threshold of 130 Hounsfield units (HU) was used for the detection of calcium in contiguous voxels of 1 sq mm in area to be counted as individual lesions. Bolus tracking in the ascending aorta with a threshold of 180 HU was performed. Immediately afterwards, ECG synchronized cardiac CT was then performed from the cardiac base to apex using retrospective gating with ECG tube current modulation. A total of 85 mL of Isovue 370 mg/mL contrast medium was administered at 5 mL/sec followed by a saline flush using a biphasic injection protocol. A tube voltage of 120 KVp was used. The patient received no medications prior to the cardiac CT. The average heart rate at the time of acquisition was 48 bpm and regular. Image Reconstruction Transaxial images were reconstructed at 0.67 mm slide thickness. Data was reviewed interactively on an advanced workstation capable of 2 and 3-dimensional displays in all conventional reconstruction formats, including multiplanar reformations, maximum intensity projections, curved multiplanar reformations, and volume rendered reconstructions. When applicable, selected routine images describing the relevant coronary anatomy and pathology were saved and sent to PACS. Complications None Technical Quality Overall image quality was good. Coronary artery opacification was adequate. Total DLP (Dose-Length Product) is 1834.1 mGy-cm. The reported value represents the total of one or more individual components during the CT acquisition of this date and at this time, and as such, the same value may appear in more than one CT report depending on the interpreting/reporting physicians. COMPARISON None FINDINGS CT Coronary Calcium Scoring LMA (Left Main Artery) = 0 LAD (Left Anterior Descending) = 0 LCX (Left Coronary Circumflex) = 0 RCA (Right Coronary Artery) = 0 Total Calcium Score = 0 using the AJ-130 method. The interpretation of the calcium heart score is based on the following continuum*: 0 = no calcified plaque detected (risk of coronary artery disease is very low ??? less than 5%) 1-10 = calcium detected in extremely minimal levels (risk of coronary diseases is still low ??? less than 10%) 11-100 = mild levels of plaque detected with certainty (mild or minimal narrowing of heart arteries is likely) 101-400 = definite,at least moderate levels of plaque detected (relatively high risk of a heart attack within 3-5 years) >401-999 = extensive levels of plaque detected (high risk of heart attack, high levels of vascular disease are present, high likelihood of at least one significant coronary narrowing) *The calcium heart score quantifies the burden of coronary calcification/plaque in the coronary arteries. The calcium heart score is not able to evaluate the presence or burden of non-calcified (i.e. soft) plaque. There is no identifiable calcification in the aortic valve, mitral annulus or mitral valve, pericardium, or myocardium. Coronary CT Angiography The coronary arterial system is right dominant. Quantitative Stenosis Grading: Left Main (LM): The left main originates normally from the left sinus of Valsalva. The LM bifurcates into the left anterior descending artery and left circumflex artery. The LM is patent with no evidence of atherosclerosis. Left Anterior Descending (LAD) and Diagonal Branches: The LAD gives off 2 diagonal branch(es). The LAD and its branches are patent with no evidence of atherosclerosis. There is no evidence of LAD-myocardial bridge. Left Circumflex (LCX) and Obtuse Marginals (OM): The LCX gives off 1 Obtuse Marginal (OM) branch(es). The LCX and its branches are patent with no evidence of atherosclerosis. Right Coronary Artery (RCA): The RCA originates normally from the right sinus of Valsalva. The RCA gives off a posterior descending artery (PDA) and posterolateral (PL) branches. The RCA and its branches are patent with no evidence of atherosclerosis. Non-Coronary Cardiac Findings: Analysis of the left ventricular (LV) structure and function was performed after 3-D reconstruction of the LV from axial images, with user-corrected automatic contouring for assessment of LV volumes and user-defined reconstruction from oblique planes for measurement of 3-D cardiac structure and function. -The left ventricle systolic function is normal. -There is no left atrial appendage filling defect. Two right pulmonary veins and two left pulmonary veins drain normally into the left atrium. -No pericardial thickening or calcification. -Central and branch pulmonary arteries in the [id number] are unremarkable. -Thoracic aorta within the visualized thoracic aortic-branches in the [id number] is unremarkable. Extracardiac Structures No significant extra-cardiac findings. Note, however, that this study is focused on the cardiac findings. IMPRESSION -Absence of coronary calcification with an Agatston score = 0 using the AJ-130 method. -No evidence of significant flow-limiting atherosclerosis of the coronary arteries. -No evidence of coronary anomalies or myocardial bridges. -CAD-RADS 0. Management recommendations per ACC/AHA guidelines*, as clinically appropriate. *Recommendations: CAD RADS 0: Reassurance. Consider non-atherosclerotic causes of chest pain. CAD RADS 1: Consider non-atherosclerotic causes of chest pain. Consider preventive therapy and risk factor modification. CAD RADS 2: Consider non-atherosclerotic causes of chest pain. Consider preventive therapy and risk factor modification, particularly for patients with nonobstructive plaque in multiple segments. CAD RADS 3: Consider further functional testing. Consider symptom-guided anti-ischemic and preventive pharmacotherapy as well as risk factor modification per published guideline statements. CAD RADS 4A: Consider further functional testing or invasive coronary angiography with revascularization per published guideline statements. Consider symptom-guided anti-ischemic and preventive pharmacotherapy as well as risk factor modification per published guideline statements. CAD RADS 4B: Invasive coronary angiography recommended with revascularization per published guideline statements. Consider symptom-guided anti-ischemic and preventive pharmacotherapy as well as risk factor modification per published guideline statements. CAD RADS 5: Consider invasive angiography and/or viability assessment with revascularization per published guideline statements. Consider symptom-guided anti-ischemic and preventive pharmacotherapy as well as risk factor modification per published guideline statements. CRITICAL RESULT None COMMUNICATION Per this written report The coronary and cardiac findings of this CCTA were reviewed, reported, and signed by Ethan Schreiber MD ([employer]) Conclusion Electronically signed by : Ana Rosa Schreiber MD 09/11/2024 14:45:41
[2024-09-11 08:31] VITALS: BP 112/64; PULSE 41; RESP 16; O2SAT 100
[2024-09-11 08:34] VITALS: BP 96/52; PULSE 46; RESP 18; O2SAT 100
[2024-09-11 08:46] VITALS: BP 114/57; PULSE 51; RESP 16; O2SAT 100
[2024-09-11] MEDS: 0.9 % SODIUM CHLORIDE 50 ML VIAL 41 ML IV (08:46)
[2024-09-11] MEDS: IOPAMIDOL-370 (76%);100ML BOTTLE 85 ML IV (08:47)
[2024-09-11] MEDS: SODIUM CHLORIDE 0.9% 10ML SYR (RAD ONLY) 10 ML IV (08:47)
== END 2024-09-11 08:50 | disposition home or self-care (01) ==
PROVIDERS: PCP Nurse Practitioner Family; Visit Provider Physician Assistant
DX: I47.29 Other ventricular tachycardia (principal)
CPT/HCPCS: 75574; 80048; 81025; Q9967

== ENCOUNTER 2024-09-22 11:39 | Outpatient (CLI) | payer MEDICAID, SELFPAY ==
--- OUTSIDE RECORDS SUMMARY | 2024-09-22 11:41 | XMS_ITS | Encounter Summary ---
Author Organization Healthcare Address [address] [place] [address] Care Team Providers Care Balance And Hairspring Assembler Name Role Phone Alice Junior APRN Primary Care Provider [phone] Encounter Details Date Type Department Care Team (Late st Contact Info) Description 01/16/2024 Outside Procedure External Location [address] [place] [address] Siobhan Strong, NEGRA, DNP [address] [place] [id number] Social History Tobacco Use Types Packs/Day Years Used Date Smoking Tobacco: Never Smokeless Tobacco: Never Alcohol Use Standard Drinks/Week Comments Not Currently 0 (1 standard drink = 0.6 oz pur e alcohol) Humiliation, Afraid, Rape, and Kick questionnair e Answer Date Recorded Within the last year, have y ou been afraid of your partner or ex-partner? No 01/13/2024 Within the last year, have y ou been humiliated or emotionally abused in other ways by your partner or ex-partner? No Within the last year, have y ou been kicked, hit, slapped, or otherwise physically hurt by your partner or ex-partner? No 01/13/2024 Within the last year, have y ou been raped or forced to have any kind of sexual activity by your partner or ex-partner? No 01/13/2024 Social Connection and Isolation Panel Answer Date Recorded In a typical week, how many times do you talk on the phone with family, friends, or neighbors? Three times a week 07/26/2023 How often do you get togethe r with friends or relatives? Three times a week 07/26/2023 How often do you attend chur ch or gnosticism services? Never 07/26/2023 Do you belong to any clubs o r organizations such as buddhist groups, unions, fraternal or athletic groups, or school groups? No 07/26/2023 How often do you attend meet ings of the clubs or organizations you belong to? Never 07/26/2023 Are you , , di vorced, , never , or living with a partner? 07/26/2023 AUDIT-C Answer Date Recorded Q1: How often do you have a drink containing alcohol? Never 07/26/2023 Q2: How many drinks containi ng alcohol do you have on a typical day when you are drinking? Patient does not drink Q3: How often do you have si x or more drinks on one occasion? Never 07/26/2023 Overall Financial Resource Strain (CARDIA) Answe r Date Recorded How hard is it for you to pa y for the very basics like food, housing, medical care, and heating? Not hard at all 07/26/2023 PHQ-2 Answer Date Recorded Patient Health Questionnaire-2 Score 0 01/13/2024 [facility] - Occupational Stress Questionnaire Answer Date Recorded Do you feel stress - tense, restless, nervous, or anxious, or unable to sleep at night because your mind is troubled all the time - these days? Only a little 07/26/2023 Exercise Vital Sign Answer Date Recorde d On average, how many days pe r week do you engage in moderate to strenuous exercise (like a brisk walk)? 4 days 07/26/2023 On average, how many minutes do you engage in exercise at this level? 60 min 07/26/2023 Hunger Vital Sign Answer Date Recorded Within the past 12 months, y ou worried that your food would run out before you got the money to buy more. Never true 01/13/20 24 Within the past 12 months, t he food you bought just didn't last and you didn't have money to get more. Never true 01/13/2024 PRAPARE - Transportation Answer Date Re corded In the past 12 months, has l ack of transportation kept you from medical appointments or from getting medications? No 10/2023 In the past 12 months, has l ack of transportation kept you from meetings, work, or from getting things needed for daily living? No 01/13/2024 Housing Stability Vital Sign Answer Jerzy e Recorded In the last 12 months, was t here a time when you were not able to pay the mortgage or rent on time? No 01/13/2024 In the last 12 months, how many places have you lived? 1 01/13/2024 In the last 12 months, was t here a time when you did not have a steady place to sleep or slept in a chcf (including now)? No 01/13/2024 PHQ-9 Answer Date Recorded Patient Health Questionnaire-9 Score 12 06/24/2023 Safety and Environment Answer Date Saurabh rded Do you worry that your child may have been physically abused? No 01/13/2024 Do you worry that your child may have been sexua lly abused? No 01/13/2024 Are there any guns kept in o r around your home or where your child spends time? No 01/13/2024 Guns Unloaded or Locked Away Not on file 10/2023 Utilities Answer Date Recorded In the past 12 months has th e electric, gas, oil, or water company threatened to shut off services in your home? No 01/13/2024 Estimated Date of Delivery Comme nts Yes 10/29/2024 Sex and Gender Information Value Date Recorded Sex Assigned at Not on file Legal Sex Female 8:49 PM EDT Gender Identity Not on file Sexual Orientation Not on file documented as of this encounter Plan of Treatment Not on file documented as of this encounter Procedures Procedure Name Priority Date/Time Associated Diagnosis Comments US ABDOMEN RUQ 01/16/2024 7:37 AM EDT documented in this encounter Results * US Abdomen RUQ (01/16/2024 7:37 AM EDT) Anatomical Region Laterality Modality Gallbladder Ultrasound 01/16/2024 7:37 AM EDT Narrative 01/16/2024 9:22 AM EDT [address] [place] [address] Name: AMELIA MCKEON Exam Date: 01/16/2024 : 2000 Age 23 years Gender: F Physician: Siobhan Strong Facility: [facility] Facility HSV: Outpatient Exam: RT UPPER QUADRANT US PROCEDURE: US ABDOMEN LIMITED, 01/16/2024 7:17 AM CDT CLINICAL INDICATION:ruq pain. COMPARISON: None FINDINGS: Liver measures 12.3 cm. Coarsened echotexture. Patent main portal vein with hepatopedal flow, measures up to 1.1 cm. Partially distended gallbladder. Negative sonographic Mayer sign. Gallbladder wall measures up to 1 mm. Common bile duct measures up to 3 mm. No cholelithiasis. Mildly heterogeneous gallbladder wall with nodularity, may represent gallbladder wall cholesterolosis. Right kidney measures up to 9 cm. IMPRESSION: Mildly heterogeneous gallbladder wall with nodularity, may represent gallbladder wall cholesterolosis. Electronically signed by:Adrianne Aljeandre MD01/16/2024 09:19 AM EDT Dictated By: Adrianne Alejandre Transcribed By: Transcribed On: 01/16/2024 8:17 AM Electronically signed by: Adrianne Alejandre 01/16/2024 Thank you for referring AMELIA MCKEON to [facility]. Legally authenticated by KATHY MILLIGAN 2024-01-16 08:17:24 Procedure Note Provider, [facility] - 01/16/2024 [place] [address] Name: AMELIA MCKEON Exam Date: 01/16/2024 : 2000 Age 23 years Gender: F Physician: Siobhan Strong Facility: [facility] Facility HSV: Outpatient Exam: RT UPPER QUADRANT US PROCEDURE: US ABDOMEN LIMITED, 01/16/2024 7:17 AM CDT CLINICAL INDICATION:ruq pain. COMPARISON: None FINDINGS: Liver measures 12.3 cm. Coarsened echotexture. Patent main portal vein with hepatopedal flow, measures up to 1.1 cm. Partially distended gallbladder. Negative sonographic Mayer sign.Gallbladder wall measures up to 1 mm. Common bile duct measures up to 3 mm. No cholelithiasis. Mildly heterogeneous gallbladder wall with nodularity, may represent gallbladder wall cholesterolosis. Right kidney measures up to 9 cm. IMPRESSION: Mildly heterogeneous gallbladder wall with nodularity, may represent gallbladder wall cholesterolosis. Electronically signed by:Adrianne Alejandre MD01/16/2024 09:19 AM EDTRP Dictated By: Adrianne Alejandre Transcribed By: Transcribed On: 01/16/2024 8:17 AM Electronically signed by: Adrianne Alejandre 01/16/2024 Thank you for referring AMELIA MCKEON to [facility]. Legally authenticated by KATHY MILLIGAN 2024-01-16 08:17:24 us Siobhan Strong APRN, DNP IMG US PROCEDURES Fin al Result documented in this encounter Visit Diagnoses Not on filedocumented in this encounter Additional Health Concerns Assessment Noted Time PHQ-9 Depression Total Score: 12 06/23/ 024 9:50 AM EDT A Body Mass Index follow-up plan has been documented for the patient 01/13/2024 2:14 PM EDT documented as of this encounter Care Teams Balance And Hairspring Assembler Relationship Specialty Start Date End Date Alice Junior APRN [address] [place] [address] PCP - General Family Medicine 05/27/23 documented as of this encounter
--- OUTSIDE RECORDS SUMMARY | 2024-09-22 11:41 | XMS_ITS | Encounter Summary ---
Author Organization Healthcare Address [address] [place] [address] Care Team Providers Care Associate Curator Name Role Phone Alice Junior APRN Primary Care Provider [phone] Encounter Details Date Type Department Care Team (Late st Contact Info) Description 07/24/2024 Telephone [facility] [address] [place] [address] Alice Junior APRN [address] [place] [address] Social History Tobacco Use Types Packs/Day Years [...] often do you attend chur ch or christian services? Never 07/26/2023 Do you belong to any clubs o r organizations such as orthodox groups, unions, fraternal or athletic groups, or [...] Recorded Patient Health Questionnaire-2 Score 0 01/13/2024 [facility] - Occupational Stress [...] place to sleep or slept in a long-term (including now)? No 01/13/2024 PHQ-9 Answer Date [...] on file documented as of this encounter Miscellaneous Notes * Telephone Encounter - Melissa Avendaño - 07/24/2024 11:54 AM EDT Spoke with Cecilia and advised them of this and they stated they would reach out to the pt. I alsomentioned that she should reach out to her [employer] CONVEYOR TENDER and see if they are the ones who can sign off on it. * Telephone Encounter - Etelvina Rodriguez - 07/24/2024 9:54 AM EDT Clinical Concern/Question Reason for Call: Lindy from [facility] calling to verify if fax received for incontinence supplies faxed on 07/13 and 07/20. Requesting call back, anyone at [facility] can assist Best contact number: Other: [phone] [facility] Optimal time of day to reach caller: ANYTIME Additional comments/information from caller: None Note: Please do not reply to this message. Follow-up communication and further actions as a result of this message need to be communicated with the patient directly, if the patient is not active onMyChart. If the patient is active on MyChart, they will receive notification of the communication/outcome via Tendr. documented in this encounter Plan of Treatment Not on file documented as of this encounter Visit Diagnoses Not on filedocumented in this encounter Additional Health Concerns Assessment Noted Time PHQ-9 Depression Total Score: 12 024 9:50 AM EDT A Body Mass Index follow-up plan has been documented for the patient 01/13/2024 2:14 PM EDT documented as of this encounter Care Teams Associate Curator Relationship Specialty Start Date End Date Alice Junior APRN [address] [place] [address] PCP - General Family Medicine 05/27/23 documented as of this encounter
--- OUTSIDE RECORDS SUMMARY | 2024-09-22 11:41 | XMS_ITS | Clinical Summary ---
Author Organization Healthcare Address [address] [place] [address] Care Team Providers Care Design Maintenance Engineer Name Role Phone Alice Junior APRN Primary Care Provider [phone] Allergies No known active allergies Medications escitalopram (Lexapro) 20 MG tabletIndicatio ns:Depression with anxiety,Irritab ility Take 1 tablet (20 mg) by mouth every night. 90 tablet 3 4 Active Additional Information Patient not taking.Reported on 01/13/2024 busPIRone (Buspar) 7.5 MG tabletIndicatio ns:Depression with anxiety,Irritab ility Take 1 tablet (7.5 mg) by mouth 2 (two) times a day if needed (anxiety/irritab ility). 180 tablet 3 4 Active Additional Information Patient not taking.Reported on 01/13/2024 Active Problems Problem Noted Date Diagnosed Date Anemia, unspecified 05/27/2023 Estimated Date of Delivery Comme nts Yes 10/29/2024 Encounters Date Type Department Care Team Description 07/24/2024 Telephone [facility] [address] [place] [address] Alice Junior APRN 07/09/2024 Travel 07/07/2024 7:20 PM EDT Billing Only Encounter [facility] [address], [address] [place] [address] from Last 3 Months Immunizations Immunization Administration Dates Next Due DTaP 09/27/2006, 4,06/21/2003,03/22,2002 HPV 9-Valent 01/06/2015 HPV, Quadrivalent 03/16/2014,01/05/2014 Hep A, ped/adol, 3 dose 11/12/2007,09/27/2006 Hep B, adult 03/22/2003,2002,2002 Hib (PRP-T) 04/04/2004, 4,03/22/2003,11/20 IPV 09/27/2006, 4,03/22/2003,11/20 Influenza, live, intranasal, quadrivalent 02/23/2015,01/05/2014 MMR 09/27/2006,01/03/2004 Meningococcal B, Omv 02/26/2019,01/21/2019 Meningococcal MCV4O 01/21/2019 Meningococcal MCV4P 01/05/2014 Pneumococcal Conjugate PCV 13 04/04/2004 ,01/03/2004,03/22/2003,11/20 Tdap 01/05/2014 Varicella 09/27/2006,01/03/2004 Family History Medical History Relation Name Comments Cancer Maternal Grandmother Liver disease Paternal Grandfather Diabetes Paternal Grandmother Heart Problem Paternal Grandmother Relation Name Status Comments Maternal Grandmother Paternal Grandfather Paternal Grandmother Social History Tobacco Use Types Packs/Day Years Used Date Smoking Tobacco: Never Smokeless Tobacco: Never Tobacco Cessation:Counseling Given: Not Answered Alcohol Use Standard Drinks/Week Comments Not Currently [...] often do you attend chur ch or baptist services? Never 07/26/2023 Do you belong to any clubs o r organizations such as hoahaoism groups, unions, fraternal or athletic groups, or [...] Recorded Patient Health Questionnaire-2 Score 0 01/13/20[facility] Occupational Stress Questionnaire Answer Date Recorded [...] place to sleep or slept in a residential (including now)? No 01/13/2024 PHQ-9 Answer Date [...] on file Sexual Orientation Not on file Last Filed Vital Signs Vital Sign Reading Time Taken Comments Blood Pressure 114/64 01/13/2024 1:01 PM EDT Pulse 67 01/13/2024 1:01 PM EDT Temperature - - Respiratory Rate - - Oxygen Saturation 99% 01/13/2024 1:01 PM EDT Inhaled Oxygen Concentration - - Weight 52.7 kg (116 lb 3.2 oz) 01/13/2024 1:01 P M EDT Height 157.5 cm (5' 2 ) 01/13/2024 1:01 PM EDT Body Mass Index 21.25 01/13/2024 1:01 PM EDT Plan of Treatment Health Maintenance Due Date Last Done Comments [facility]-Chlamydia and Gonorrhea Screening 2002 [facility]-HIV Screening 2002 [facility]-Pap Smear 09/21/2023 [id number] Vaccine ( season) 2023 [facility]-DTaP,Tdap,and Td Vaccines (7 - Td or Tdap) 01/06/2024 01/05/2014, 09/27/2006, 04/04/2004, Additional history exists [facility]- SDOH Screenings 07/13/2024 [facility]-Adult SDOH Screenings 07/13/2024 01/13/2024 [facility]-Infant/Child/Adol SDOH Screenings 07/13/2024 01/13/2024 [facility]-Influenza Vaccine (Season Ended) 2024 02/23/2015, 01/05/2014 [facility]-Depression Screening 01/12/2025 01/13/2024, 06/06 [facility]-Zoster Vaccines (1 of 2) 2052 09/27/2006, 01/03/2004 [facility]-Hepatitis B Vaccines Completed 003, 2002, 2002 [facility]-HIB Vaccines Completed 04/04/2004, , 03/22/2003, Additional history exists [facility]-Pneumococcal Vaccine: Pediatrics (0 to 5 Years) and At-Risk Patients (6 to 49 Years) Completed 04/04/2004, 01/03/2004, 03/22/2003, Additional history exists [facility]-IPV Vaccines Completed 09/27/2006, , 03/22/2003, Additional history exists [facility]-Varicella Vaccines Completed 09/27/2006, 2003 [facility]-Hepatitis A Vaccines Completed 11/12/2007, 09/07 HPV Vaccines Completed 01/06/2015, 12/2013, 01/05/2014 [facility]-Hepatitis C Screening Completed 10/11/2023 [facility]-RSV Vaccine: 60+ Years or (No Doses Required) Completed [facility]-Rotavirus Vaccines Aged Out No lo nger eligible based on patient's age to complete this topic Procedures Procedure Name Priority Date/Time Associated Diagnosis Comments CBC WITH AUTO DIFFERENTIAL Routine 08/08/2024 5:08 PM EDT TYPE AND SCREEN Routine 08/08/2024 1:23 AM EDT CBC W/O DIFFERENTIAL Routine 08/08/2024 1:23 AM EDT ACUTE HEPATITIS PANEL Routine 10/11/2023 2:00 PM EDT RUQ pain from Last 3 Months or Most Recently Relevant to Health Maintenance Results * (ABNORMAL) CBC and Differential (08/08/2024 5:08 PM EDT) External WBC 11.7(H) 4.0 - 10.5 K/ul [facility] External Red Blood Cell (RBC) 3.5(L) 4.2 - 6.4 M/mm3 [facility] External Hemoglobin 9.1(L) 12.5 - 16.0 gm/dl [facility] External Hematocrit 28.1(L) 37.0 - 47.0 % [facility] External MCV 79.8 78 - 100 fl [facility] External MCH 25.9(L) 27 - 31 pg [facility] External MCHC 32.4 32 - 36 g/dl [facility] External RDW 13.4 11.5 - 14.0 % [facility] External Platelets 174 150 - 450 K/ul [facility] External MPV 10.8(H) 6 - 9.5 fl [facility] External Neutrophils % 76.5(H) 43 - 65 % [facility] External Lymphocyte % 14.8(L) 20.5 - 45.5 % [facility] External Monocyte % 7.7 5.5 - 11.7 % [facility] External Eosinophil% 0.3(L) 0.9 - 2.9 % [facility] External Basophil % 0.2 0.2 - 1.0 % [facility] External Immature Granulocyte% 0.5 0.0 - 0.8 % [facility] External Nucleated RBC % 0.0 % [facility] External Neutrophil# 9.0(H) 2.2 - 4.8 K/uL [facility] External Lymphocyte# 1.7 1.3 - 2.9 CELL/MCL [facility] External Monocyte# 0.9(H) 0.3 - 0.8 CELL/[facility] External Eosinophils# 0.0 0 - 0.2 CELL/[facility] External Baso# 0.0 0.0 - 1.0 CELL/[facility] External Immature Granulocyte Abs 0.06 K/ul [facility] External Nucleated RBC Absolute 0.00 K/uL [facility] External Manual Differential NO [facility] 08/08/2024 5:08 PM EDT 08/08/2024 5:10 PM EDT us Wm Lunsford MD LAB BLOOD ORDERABLES Final Resu lt [facility] * (ABNORMAL) CBC W/O Differential (08/08/2024 1:23 AM EDT) External WBC 9.8 4.0 - 10.5 K/ul [facility] External Red Blood Cell (RBC) 4.2 4.2 - 6.4 M/mm3 [facility] External Hemoglobin 10.6(L) 12.5 - 16.0 gm/dl [facility] External Hematocrit 33.3(L) 37.0 - 47.0 % [facility] External MCV 79.7 78 - 100 fl [facility] External MCH 25.4(L) 27 - 31 pg [facility] External MCHC 31.8(L) 32 - 36 g/dl [facility] External RDW 13.2 11.5 - 14.0 % [facility] External Platelets 210 150 - 450 K/ul [facility] External MPV 11.2(H) 6 - 9.5 fl [facility] External Manual Differential NO [facility] 08/08/2024 1:23 AM EDT 08/08/2024 1:41 AM EDT Result Tahir Lunsford MD LAB BLOOD ORDERABLES Final Resu lt [facility] * Type and Screen (08/08/2024 1:23 AM EDT) External History Check Completed [facility] External ABO/Rh A POSITIVE DEEP [facility] External Antibody Screen NEGATIVE [facility] External Status Information Completed [facility] 08/08/2024 1:23 AM EDT 08/08/2024 1:23 AM EDT Result Tahir Lunsford MD LAB BLOOD BANK TEST ORDERABLES Final Result [facility] * Acute Hepatitis Panel (10/11/2023 2:00 PM EDT) Hepatitis B Surf Antigen Negative Negative 10/11/2023 7:38 PM EDT [facility] Hepatitis C Antibody Negative Negative 10/11/2023 7:38 PM EDT [facility] Hepatitis A Antibody IgM Negative Negative 10/11/2023 7:38 PM EDT [facility] Hepatitis B Core Antibody IgM Negative Negative 10/11/2023 7:38 PM EDT [facility] Blood Venous blood specimen / Unknown Venipuncture / Unknown 10/11/2023 2:00 PM EDT 10/11/2023 2:00 PM EDT us Stacia Alcantar MD LAB BLOOD ORDERABLES Final Re [facility]ult [facility] [address] [place] [address] from Last 3 Months or Most Recently Relevant to Health Maintenance Insurance [facility] MEDICAID Care Teams Design Maintenance Engineer Relationship Specialty Start Date End Date Alice Junior APRN [address] [place] [address] PCP - General Family Medicine 05/27/23
[2024-09-22 11:50] VITALS: BMI 23.2
[2024-09-22 12:16] LABS: Basophils % 0.5 % (0.1-2.0); Hematocrit 36.8 % (37.0-47.0); Hemoglobin 11.7 g/dL (12.2-16.2); Immature Granulocytes # 0.01 10^3uL; Immature Granulocytes % 0.2 %; Lymphocytes % 24.9 % (10-50); Mean Corpuscular HGB Conc 31.8 g/dL (31.8-35.4); Mean Corpuscular Hemoglobin 26.2 pg (27.0-31.2); Mean Corpuscular Volume 82.5 fl (81-99); Mean Platelet Volume 10.1 fl (7.4-10.4); Monocytes # 0.3 K/mm3 (0.1-1.0); Monocytes % 6.2 % (1.7-9.3); Neutrophils # 2.7 K/mm3 (1.8-7.8); Neutrophils % 67.2 % (37.0-80.0); Nucleated Red Blood Cells # 0 10^3/uL; Nucleated Red Blood Cells % 0 %; Platelet Count 231 K/mm3 (142-424); Red Blood Count 4.46 M/mm3 (4.20-5.40); Red Cell Distribution Width 16.4 % (11.5-17.5); Red Cell Distribution Width-SD 49.3 fL; White Blood Count 4.1 K/mm3 (4.8-10.8)
[2024-09-22 12:26] LABS: Albumin Level 4.2 g/dl (3.5-5.0); Chloride 106 mmol/L (98-107); Potassium 3.8 mmoL/L (3.5-5.1); Sodium 136 mmol/L (136-145)
[2024-09-22 12:29] LABS: Alanine Aminotransferase 21 U/L (12-78); Albumin/Globulin Ratio 1.7 (1.1-1.8); Alkaline Phosphatase 70 U/L (38-126); Anion Gap 6.8 mEq/L (5-15); Aspartate Amino Transferase 32 U/L (14-36); Bilirubin,Total 0.5 mg/dl (0.2-1.3); Blood Urea Nitrogen 8 mg/dl (7-17); Carbon Dioxide 27 mmol/L (22.0-30.0); Creatinine Clearance Estimated 115 mL/min (50-200); Estimated Glomerular Filt Rate 105 ml/min (>60); GFR (African American) 127 ML/MIN (>60); Globulin 2.5 g/dL (1.3-3.2); Total Protein,Serum 6.7 g/dl (6.3-8.2)
[2024-09-22 12:30] LABS: Glucose 104 mg/dl (74-100)
[2024-09-22 12:33] LABS: HCG Qualitative, Serum Negative (Negative)
== END 2024-09-22 23:59 | disposition home or self-care (01) ==
LOC: PREOP 11:39
PROVIDERS: PCP Nurse Practitioner Family; Visit Provider Obstetrics & Gynecology
DX: Z01.812 Encounter for preprocedural laboratory examination (principal)
CPT/HCPCS: 80053; 84703; 85025

== ENCOUNTER 2024-09-24 07:41 | Day surgery (SDC) | payer MEDICAID, SELFPAY ==
[2024-09-22 12:53] VITALS: BMI 23.2
[2024-09-24] VITALS (9 sets, daily range): BP systolic 111–169; BP diastolic 59–95; PULSE 55–90; RESP 16–24; TEMP 36.2–36.9; O2SAT 98–100
[2024-09-24] MEDS: ACETAMINOPHEN 500MG TAB 1000 MG PO (08:06)
[2024-09-24] MEDS: LACTATED RINGERS 1000ML 1,000 ML 25 ML IV (08:06)
--- NOTE | 2024-09-24 08:31 | P.PNANES_ITS ---
[facility] Disclaimer: The information contained in this section may have been updated after the patient was seen, as this information can be updated by other users. Medical History Request for sterilization Constipation Premature cervical dilation in third trimester Nausea and vomiting in Abdominal pain affecting Dizziness Rubella non-immune status, antepartum History of delivery Anemia during Surgical History No history of previous surgery Family History Other Family history of diabetes mellitus Family history of heart disease Social History Smoking Status: Current every day smoker tobacco type: e-cigarettes alcohol intake: never substance use type: denies use current occupational status: unemployed Travel in the last 8 weeks?: None Have you lived/traveled outside US in past 30 days?: No Contact w/someone who lives/traveled outside US past 30 days?: No Exposure to someone with infectious disease in past 14 days?: No Do you have a fever (greater than 100.4 F or 38 C)?: No Have you tested positive for COVID-19?: No Exposed to someone with COVID-19 in past 14 days?: No Do you have a sore throat?: No Do you have a cough?: No Do you have any weakness?: No Do you have any diarrhea?: No Are you experiencing any unusual bleeding?: No Do you have any muscle aches/pain?: No Do you have any abdominal pain?: No Are you experiencing loss of taste or smell?: No [facility] Anesthesia Checklist Patient Identification Patient Identification: Arm Band and Family Structural Data Admitted From: Home Planned Operative Procedure/s: Lap salpingectomy. Consent for Planned Operative Procedure(s) Verified: Yes Verified Documents: Surgical Consent and History and Physical NPO Status Verified Time NPO: 00:00 Additional verifications Patient : No Anesthesia Reactions: No Hx Blood Transfusions: No Blood Transfusion Reaction: No Cephalosporin Allergy: No Previous Colonoscopy: No Airway Assessment Mallampati Score:: Class I C-Spine Mobility Assessed: Yes TMJ Mobility Assessed: Yes Dentition: Good Dentition Neurological Assessment Level of Consciousness: Awake, Alert, Appropriate and Follows Commands Hx Seizures: No Numbness or tingling in extremities: No Anesthesia Plan Anesthesia Risk discussed: Yes ASA Class: II Anesthesia Type: General Preoperative Comments Pre-Operative Comments: Vapes. History of asthma...no rx. IBS.
[2024-09-24] MEDS: BUPIVACAINE 0.5% 30ML VIAL 150 MG (09:16)
[2024-09-24] MEDS: SILVER NITRATE APPLICATOR 1 EACH TP (09:48)
[2024-09-24] MEDS: MEPERIDINE 25MG/ML 1ML SYRINGE 12.5 MG IV (10:05)
--- NOTE | 2024-09-24 10:06 | EXP.OP.NOTE ---
Date of procedure: 09/24/24 Pre-op Diagnosis:: 1. Complete family status, desires permanent sterilization Post-op Diagnosis:: 1. Complete family status, desires permanent sterilization Procedure performed:: Laparoscopy, bilateral salpingectomy Surgeon:: Lindy Maradiaga DO Irrigation Tax Assessor Collector(s):: N/a CYBER ENGINEER:: Luis Patel Anesthesia: GETA Estimated blood loss (mL): 2 Clinical Note:: Mrs Amelia Mckeon is a 24 yo P1203 who presents to [facility] for scheduled procedure. She is 6 weeks , vaginal delivery. History of x 3. She delivered at 36 weeks. She is feeling well. She is complete with childbearing and desires permanent sterilization. Operative findings:: 1. Upon bimanual exam, uterus normal size and shape, midposition, No adnexal masses palpated 2. Upon laparoscopic exam liver, stomach and bowel appear grossly normal. Uterus, bilateral fallopian tubes and ovaries grossly normal. No evidence of adhesions or endometriosis Operative note:: Risks, benefits and alternatives were discussed with the patient. Risks include but are not limited to bleeding, infection, damage to adjacent structures and VTE. Patient voiced understanding and agreed to proceed with surgery. She was wheeled back to the operating room and placed under general anesthesia without difficulty. She was placed in the dorsal lithotomy position and prepped and draped in normal sterile fashion. A straight catheter was inserted into the bladder and draining clear urine prior to the start of the procedure. A bimanual exam was performed. A weighted Auvard was placed in the vaginal vault. A single tooth tenaculum was placed on the anterior lip of the cervix. Garden manipulator was inserted into the cervical canal and attached to the tenaculum. Weighted Auvard was removed from the vagina. Attention was then drawn to the abdomen. A 1.5 cm infraumbilical incision was made. Veress needle was tested and inserted intraabdominally without difficulty. Opening pressure of 6 mm Hg. Abdomen was then insulflated to 15 mm Hg. Trocar was inserted through infraumbilical incision and laparoscope was inserted. Abdomen was viewed in its entirety. See findings above. Pictures were taken. Left lower quadrant was transilluminated. 5 mm incision was made and 5 mm disposable blunt trocar was inserted into the abdomen under direct laparoscopic visualization. Trocar was removed and sleeve was left in place. Right lower quadrant was transilluminated. A 5 mm incision was made and a 5 mm disposable trocar was inserted into the abdomen under direct laparoscopic visualization. Obturator was removed and sleeve was left in place. Fimbriated end of right fallopian tube was grasped. Ligasure was used to transect the right mesosalpinx and fallopian tube at uterine cornua, leaving right ovary in situ. Same procedure was carried out on the contralateral side. Bilateral fallopian tubes will be sent to pathology for review. Hemostasis was noted. Left lower quadrant trocar was removed under direct laparoscopic visualization. Right lower quadrant trocar was removed under direct laparoscopic visualization. Pneumoperitoneum was released into the atmosphere. Infraumbilical trocar was removed under direct laparoscopic visualization to ensure no herniation of bowel or omentum. Skin incisions were closed with 3-0 Vicryl. Dermabond was applied over closed skin incisions. All instruments were removed from the vagina. Tenaculum site was noted to be oozing. Silver nitrate stick x 1 was applied to tenaculum sites. Hemostasis noted. Patient was cleaned and placed into the dorsal supine position. She awoke from anesthesia without difficulty. She was transported to the recovery room in stable condition. She was given instructions for discharge and to follow-up in the office in 2 weeks at which time pathology will be reviewed. Condition: stable Disposition: same day Specimens:: 1. Bilateral fallopian tubes Complications:: None
--- NOTE | 2024-09-24 10:13 | EXP.ANES.I ---
[facility] Anesthesia Record Part I Anesthesia Record I Intake, IV Amount: 1,300 Hydration: Adequate Estimated blood loss (mL): 2 Urine output (mL): 0 Blood Products used (#): none Blood Pressure: 169/59 SaO2: 98 Pulse Rate: 79 Airway Patency: Patent Respiratory Rate: 24 Temperature: 97.8 F Patient is:: Drowsy and Stable Stable to PACU at:: 10:05
[2024-09-25 09:16] VITALS: BP 131/78; PULSE 64; RESP 17; TEMP 36.2; O2SAT 100
--- NOTE | 2024-09-25 09:16 | P.PNANES_ITS ---
[facility] Anesthesia Record Part II Anesthesia Record Part II Discharge Time: 10:56 Destination: Surgical Day Care (OP Surgery) PACU nurse assessment reviewed?: Yes Patient Condition:: Good Anesthesia Complications:: None Swallowing reflex intact?: Yes Airway Patency: Patent Cyanosis?: No Blood Pressure: 131/78 SaO2: 100 Respiratory Rate: 17 Pulse Rate: 64 Temperature: 97.1 F Mental Status: Alert & Oriented Pain level:: 0 Nausea and/or vomitting:: None Intake, IV Amount: 0 Hydration: Adequate
== END 2024-09-24 11:05 | disposition home or self-care (01) ==
PROVIDERS: PCP Nurse Practitioner Family; Visit Provider Obstetrics & Gynecology
PROC: (CPT 58661; principal; 2024-09-24 09:15)
DX: Z30.2 Encounter for sterilization (principal); K58.1 Irritable bowel syndrome with constipation; M62.89 Other specified disorders of muscle; K59.00 Constipation, unspecified; Z79.899 Other long term (current) drug therapy
CPT/HCPCS: 58661; J0665; J1100; J1885; J2003; J2175; J2250; J2405; J2704; J3010; J7120

== ENCOUNTER 2024-12-24 08:51 | Outpatient (CLI) | payer MEDICAID, SELFPAY ==
--- OUTSIDE RECORDS SUMMARY | 2024-12-15 10:40 | XMS_ITS | Encounter Summary ---
Author Organization Healthcare Address [address] [place] [address] Care Team Providers Care Blindstitch Lining Feller Name Role Phone Vernon Alice Becky OMER Primary Care Provider [phone] Reason for Visit * Reason Comments Back Pain Pt has upper back pa in after moving heavy object Encounter Details Date Type Department Care Team (Late st Contact Info) Description 12/15/2024 10:40 AM EDT Office Visit [facility] [address] [place] [address] Pamela Danielle MD [address] [place] [address] Acute midline thoracic back pain (Primary Dx); Anxiety Social History Tobacco Use Types Packs/Day Years Used Date Smoking Tobacco: Never Passive Smoke Exposure: Never Smokeless Tobacco: Never Tobacco Cessation:Counseling Given: Not Answered Alcohol Use Standard Drinks/Week Comments Not Currently 0 (1 standard drink = 0.6 oz pur e alcohol) Social Connection and Isolation Panel Answer Date Recorded In a typical week, how many times do you talk on the phone with family, friends, or neighbors? Three times a week 07/26/2023 How often do you get togethe r with friends or relatives? Three times a week 07/26/2023 How often do you attend chur ch or baptism services? Never 07/26/2023 Do you belong to [...] Date Recorded Patient Health Questionnaire-2 Score 0 12/15/2024 [facility] ional Health - Occupational Stress [...] exercise at this level? 60 min 07/26/2023 PHQ-9 Answer Date Recorded Patient Health Questionnaire-9 Score 0 12/15/2024 Humiliation, Afraid, Rape, and Kick questionnair e Answer Date Recorded Within the last year, have y ou been afraid of your partner or ex-partner? No 12/15/2024 Within the last year, have y ou been humiliated or emotionally abused in other ways by your partner or ex-partner? No Within the last year, have y ou been kicked, hit, slapped, or otherwise physically hurt by your partner or ex-partner? No 12/15/2024 Within the last year, have y ou been raped or forced to have any kind of sexual activity by your partner or ex-partner? No 12/15/2024 Social Connection and Isolation Panel Answer Date Recorded Frequency of Communication with Friends and Fami ly Not on file 12/15/2024 Frequency of Social Gatherings with Friends and Family Not on file 12/15/2024 Attends Oriental Orthodox Services Not on file 12/15 Active Member of Clubs or Organizations Not on f ile 12/15/2024 Attends Club or Organization Meetings Not on mark e 12/15/2024 Are you , , di vorced, , never , or living with a partner? 12/15/2024 Hunger Vital Sign Answer Date Recorded Within the past 12 months, y ou worried that your food would run out before you got the money to buy more. Never true 12/16/19 25 Within the past 12 months, t he food you bought just didn't last and you didn't have money to get more. Never true 12/15/2024 PRAPARE - Transportation Answer Date Re corded In the past 12 months, has l ack of transportation kept you from medical appointments or from getting medications? No 12/2024 In the past 12 months, has l ack of transportation kept you from meetings, work, or from getting things needed for daily living? No 12/15/2024 Housing Stability Vital Sign Answer Jerzy e Recorded In the last 12 months, was t here a time when you were not able to pay the mortgage or rent on time? No 12/15/2024 In the past 12 months, how m any times have you moved where you were living? 0 12/15/2024 At any time in the past 12 m [facility], were you homeless or living in a assisted (including now)? No 12/15/2024 [facility] Utilities Answer Date Recorded In the past 12 months has th e electric, gas, oil, or water company threatened to shut off services in your home? No 12/15/2024 Safety and Environment Answer Date Saurabh rded Do you worry that your child may have been physically abused? No 12/15/2024 Do you worry that your child may have been sexua lly abused? No 12/15/2024 Are there any guns kept in o r around your home or where your child spends time? No 12/15/2024 Guns Unloaded or Locked Away Not on file 12/2024 Comments No Sex and Gender Information Value Date Recorded Sex Assigned at Not on file Legal Sex Female 8:49 PM EDT Gender Identity Not on file Sexual Orientation Not on file documented as of this encounter Last Filed Vital Signs Vital Sign Reading Time Taken Comments Blood Pressure 115/70 12/15/2024 10:41 AM EDT Pulse 66 12/15/2024 10:41 AM EDT Temperature 37 C (98.6 F) 12/15/2024 10:41 AM EDT Respiratory Rate 16 12/15/2024 10:41 AM EDT Oxygen Saturation 100% 12/15/2024 10:41 AM EDT Inhaled Oxygen Concentration - - Weight 54.7 kg (120 lb 9.5 oz) 12/15/2024 10:41 AM EDT Height 157.5 cm (5' 2 ) 12/15/2024 10:41 AM EDT Body Mass Index 22.06 12/15/2024 10:41 AM EDT documented in this encounter Functional Status * Over the past 2 weeks, how often have you been bothered by any of the following problems? Question Answer Date of Assessment Author Little interest or pleasure in doing things Not at all 12/15/2024 10:51 AM Greg Aparicio Feeling down, depressed, or hopeless Not at all 12/15/2024 10:51 AM JAMEST Greg Eaton Patient Health Questionnaire -2 Score 0 12/15/2024 10:51 AM Greg Aparicio * Question Answer Date of Assessment Author Trouble falling or staying asleep, or sleeping too much Not at all 12/15/2024 10:51 AM Greg Aparicio Feeling tired or having jose alfredo le energy Not at all 12/15/2024 10:51 AM Greg Aparicio Poor appetite or overeating Not at all 12/15/2024 10 :51 AM Greg Aparicio Feeling bad about yourself - or that you are a failure or have let yourself or your family down Not at all 12/15/2024 10:51 AM EDT Greg Bradshaw Trouble concentrating on thi ngs, such as reading the newspaper or watching television Not at all 12/15/2024 10:51 AM Grge Aparicio Moving or speaking so slowly that other people could have noticed? Or the opposite - being so fidgety or restless that you have been moving around a lot more than usual. Not at all 12/15/2024 10:51 AM Greg Aparicio Thoughts that you would be better off or hurting yourself in some way Not at all 12/15/2024 10:51 AM Greg Aparicio Patient Health Questionnaire -9 Score 0 12/15/2024 10:51 AM Greg Aparicio * Calculated C-SSRS Risk Score (Lifetime/Recent) Answer Date of Assessment Author No Risk Indicated 12/15/2024 10:51 AM Greg Aparicio * How difficult have these problems made it for you to do your work, take care of things at home, or get along with other people? Answer Date of Assessment Author Not difficult at all 12/15/2024 10:51 AM Greg Hodge * Question Answer Date of Assessment Author 1. Wish to be (Past 1 Month) No 025 10:51 AM Greg Aparicio 2. Non-Specific Active Suici coleen Thoughts (Past 1 Month) No 12/15/2024 10:51 AM Deedee Aparicio 6. Suicidal Behavior (Lifetime) No 10:51 AM Greg Aparicio documented as of this encounter Miscellaneous Notes * Progress Notes - Pamela Danielle MD - 12/15/2024 10:40 AM EDT Office Progress Note Subjective Amelia Mckeon is a 24 y.o. female who presents for Back Pain (Pt has upper back pain after moving heavy object). History of Present Illness The patient is a 24-year-old female who presents with a chief complaint of back pain. She reports an incident at work where she was lifting heavy stage slats, which she believes may have caused her current back pain. The pain is located in her upper back, between the shoulder blades, and extends down her spine. This discomfort has been present since 12/12/2024. She describes the area as sore but does not report any numbness, tingling, or weakness in her arms or legs. The pain disrupts her sleep, preventing her from lying on her back or side. She also reports tenderness to touch in the affected area. She does not experience any pain with breathing or shortness of breath. She has attempted to alleviate the pain with heating pads, IcyHot, Biofreeze, cold compresses, and showers, but these measures have not been effective. Spmi-jni-mnddddw medications such as ibuprofen and Tylenol have also been ineffective. She has a history of minor scoliosis, which did not require surgeryor bracing, and is unsure if this could be contributing to her current pain. She has previously used muscle relaxers but did not take any for this episode. She has been prescribed Lexapro and bupropion by Alice Junior, which she reports have been effective in managing her anxiety. However, she has been without these medications for about a month and is seeking refills. She does not believe that buspirone has been beneficial for her anxiety. She has bowel problems and is scheduled for a colonoscopy. Her urinary function is normal. 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 She has completed physicaltherapy for this. She is no longer . PAST MEDICAL HISTORY: - Minor scoliosis MEDICATIONS CURRENT MEDS: Lexapro Bupropion The following sections have been reviewed and updated during this encounter: Tobacco Allergies Meds Objective Blood pressure 115/70, pulse 66, temperature 37 ??C (98.6 ??F), resp. rate 16, height 1.575 m (5' 2 ), weight 54.7 kg (120 lb 9.5 oz), SpO2 100%, unknown if currently . Body mass index is 22.06 kg/m??. Physical Exam Constitutional: Appearance: Normal appearance. HENT: Head: Normocephalic and atraumatic. Right Ear: External ear normal. Left Ear: External ear normal. Nose: Nose normal. Mouth/Throat: Mouth: Mucous membranes are moist. Pharynx: Oropharynx is clear. Eyes: Extraocular Movements: Extraocular movements intact. Pupils: Pupils are equal, round, and reactive to light. Cardiovascular: Rate and Rhythm: Normal rate and regular rhythm. Heart sounds: Normal heart sounds. Pulmonary: Effort: Pulmonary effort is normal. Breath sounds: Normal breath sounds. Abdominal: General: Bowel sounds are normal. Palpations: Abdomen is soft. Musculoskeletal: General: Tenderness (tenderness midline over thoracic spinous processes.) present. Cervical back: Normal range of motion. Right lower leg: No edema. Left lower leg: No edema. Skin: General: Skin is warm and dry. Coloration: Skin is not jaundiced. Findings: No rash. Neurological: Mental Status: She is alert. Psychiatric: Mood and Affect: Mood normal. Behavior: Behavior normal. Thought Content: Thought content normal. Assessment/Plan Diagnoses and all orders for this visit: Acute midline thoracic back pain - metaxalone (Skelaxin) 800 MG tablet; Take 1 tablet by mouth 3 times a day as needed for muscle spasms. - XR Thoracic Spine 2 Views; Future Anxiety Depression with anxiety - busPIRone (Buspar) 7.5 MG tablet; Take 1 tablet by mouth 2 times a day as needed (anxiety/irritability). - escitalopram (Lexapro) 20 MG tablet; Take 1 tablet by mouth nightly. Irritability - busPIRone (Buspar) 7.5 MG tablet; Take 1 tablet by mouth 2 times a day as needed (anxiety/irritability). - escitalopram (Lexapro) 20 MG tablet; Take 1 tablet by mouth nightly. Other orders - ibuprofen 600 MG tablet; Take 1 tablet by mouth every 6 hours as needed for mild pain. Assessment & Plan 1. Back pain. The patient's back pain is likely muscular in nature, but there is concern due to tenderness over the spinous processes and her history of scoliosis. An x-ray will be ordered to ensure no compressionfractures are present. The dosage of ibuprofen will be increased to 800 mg, to be taken every 8 hours with food. A refill of Skelaxin (metaxalone) will be provided for use as needed. She is advised to continue using ice and heat as per her comfort. If full-dose anti- inflammatory medication and muscle relaxers do not alleviate the pain, a referral to physical therapy will be considered. 2. Anxiety. The patient reports that Lexapro and bupropion have been effective in managing her anxiety. Refillsfor Lexapro and bupropion will be provided. She is advised to monitor for any signs of bleeding while on these medications. Verbal consent was obtained to use ambient listening technology to assist in the documentation of the encounter: yes documented in this encounter Plan of Treatment Scheduled Orders Name Type Priority Associated Diagnoses Orde r Schedule XR Thoracic Spine 2 Views Imaging Routine Acute midline thoracic back pain Expected: 12/15/2024 (Approximate), Expires: 06/18/2026 documented as of this encounter Visit Diagnoses Diagnosis Acute midline thoracic back pain- Primary Anxiety Anxiety state, unspecified documented in this encounter Additional Health Concerns Assessment Noted Time PHQ-9 Depression Total Score: 0 12/16/19 25 10:51 AM EDT A Body Mass Index follow-up plan has been documented for the patient 12/15/2024 11:22 AM EDT documented as of this encounter Care Teams Blindstitch Lining Feller Relationship Specialty Start Date End Date Alice Junior APRN [address] [place] [id number] PCP - General Family Medicine 05/27/23 documented as of this encounter
--- OUTSIDE RECORDS SUMMARY | 2024-12-24 09:07 | XMS_ITS | Encounter Summary ---
Author Organization Healthcare Address [address] [place] [address] Care Team Providers Care Neon Sign Erector Name Role Phone Alice Junior APRN Primary Care Provider [phone] Encounter Details Date Type Department Care Team (Late st Contact Info) Description 12/15/2024 Outside Procedure External Location [address] [place] [address] Jossy Danielle MD [address] [place] [address] Social History Tobacco Use Types Packs/Day Years Used Date Smoking Tobacco: Never Passive Smoke Exposure: Never Smokeless Tobacco: Never Alcohol Use Standard [...] often do you attend chur ch or yazidi services? Never 07/26/2023 Do you belong to any clubs o r organizations such as scientology groups, unions, fraternal or athletic groups, or [...] Recorded Patient Health Questionnaire-2 Score 0 12/15/2024 [facility] of Occupat ional Health - Occupational Stress [...] and Family Not on file 12/15/2024 Attends Jewish Services Not on file 12/15 Active Member [...] any time in the past 12 m [facility], were you homeless or living in a longterm (including now)? No 12/15/2024 [facility] Utilities Answer Date Recorded In the past [...] on file documented as of this encounter Functional Status * Over the past 2 weeks, how often have you been bothered by any of the following problems? Question Answer Date of Assessment Author Little interest or pleasure in doing things Not at all 12/15/2024 10:51 AM Greg Aparicio Feeling down, depressed, or hopeless Not at all 12/15/2024 10:51 AM Greg Aparicio Patient Health Questionnaire -2 Score 0 12/15/2024 [...] down Not at all 12/15/2024 10:51 AM Greg Hodge Trouble concentrating on thi ngs, such as reading the newspaper or watching television Not at all 12/15/2024 10:51 AM Greg Aparicio Moving or speaking so slowly that [...] (Past 1 Month) No 025 10:51 AM EDT Greg Eaton 2. Non-Specific Active Suici coleen Thoughts (Past 1 Month) No 12/15/2024 10:51 AM EDT Deedee Eaton P 6. Suicidal Behavior (Lifetime) No 10:51 AM EDT Greg Eaton documented as of this encounter Plan of Treatment Not on file documented as of this encounter Procedures Procedure Name Priority Date/Time Associated Diagnosis Comments XR THORACIC SPINE 2 VIEWS 12/15/2024 11:46 AM EDT documented in this encounter Results * XR Thoracic Spine 2 Views (12/15/2024 11:46 AM EDT) Anatomical Region Laterality Modality Spine, T-spine Digital Radiogra phy 12/15/2024 11:4 6 AM EDT Narrative 12/15/2024 1:15 [place] [address] Name: AMELIA MCKEON Exam Date: 12/15/2024 : 2000 Age 24 years Gender: F Physician: JOSSY DANIELLE Facility: [facility] Facility HSV: Outpatient Exam: THORACIC SPINE 2V XR THORACIC SPINE 2 VIEWS Reason For Study: acute midline thoracic back pain COMPARISON:None TECHNIQUE: 3 images of the thoracic spine were obtained. FINDINGS 3 degrees of levoscoliosis mid thoracic spine. No fracture or malalignment or significant arthritic changes. No paraspinal swelling. IMPRESSION: Mild scoliosis. Electronically signed by: Nilton Power MD 12/15/2024 01:11 PM EDT Dictated By: Nilton Power Transcribed By: Transcribed On: 12/15/2024 1:11 PM Electronically signed by: Nilton Power 12/15/2024 Thank you for referring MCKEON AMELIA to [facility]. Legally authenticated by MARYBEL TIAN 2024-12-15 13:11:58 Procedure Note Provider, Generic Jackson - 12/15/[address] [address] Name: AMELIA MCKEON Exam Date: 12/15/2024 : 2000 Age 24 years Gender: F Physician: JOSSY DANIELLE Facility: [facility] Facility HSV: Outpatient Exam: THORACIC SPINE 2V XR THORACIC SPINE 2 VIEWS Reason For Study: acute midline thoracic back pain COMPARISON:None TECHNIQUE: 3 images of the thoracic spine were obtained. FINDINGS 3 degrees of levoscoliosis mid thoracic spine. No fracture or malalignmentor significant arthritic changes. No paraspinal swelling. IMPRESSION: Mild scoliosis. Electronically signed by: Nilton Power MD 12/15/2024 01:11 PM EDT RP Dictated By: Nilton Power Transcribed By: Transcribed On: 12/15/2024 1:11 PM Electronically signed by: Nilton Power 12/15/2024 Thank you for referring AMELIA MCKEON to [facility]. Legally authenticated by MARYBEL TIAN 2024-12-15 13:11:58 us Jossy Danielle MD IMG XR PROCEDURES Final Re sult documented in this encounter Visit Diagnoses Not on filedocumented in this encounter Additional Health Concerns Assessment Noted Time PHQ-9 Depression Total Score: 0 12/16/19 25 10:51 AM EDT A Body Mass Index follow-up plan has been documented for the patient 12/15/2024 11:22 AM EDT documented as of this encounter Care Teams Neon Sign Erector Relationship Specialty Start Date End Date Alice Junior APRN [address] [place] [address] PCP - General Family Medicine 05/27/23 documented as of this encounter
--- OUTSIDE RECORDS SUMMARY | 2024-12-24 09:07 | XMS_ITS | Clinical Summary ---
[facility] Address [address] [place] [address] Care Team Providers Care Exceptional Student Education Aide Name Role Phone Alice Junior NEGRA Primary Care Provider [phone] Allergies No known active allergies Medications Vit-Fe Fumarate-FA ( vitamin 27-0.8) 27-0.8 MG tablet tablet Take by mouth Daily. Active busPIRone (BUSPAR) 7.5 MG tablet 4 Active escitalopram (LEXAPRO) 20 MG tablet Take 1 tablet by mouth Every Night. 4 Active magnesium oxide (MAG-OX) 400 MG tablet Take 1 tablet by mouth Daily. Active metoprolol tartrate (LOPRESSOR) 25 MG tablet Take 1 tablet by mouth Every 12 (Twelve) Hours. 180 tablet 5 Active calcium carbonate (TUMS) 500 MG chewable tablet Chew 1 tablet As Needed for Indigestion or Heartburn. Active Active Problems Problem Noted Date Diagnosed Date Third trimester 07/04/2024 IUGR (intrauterine growth re striction) affecting care of mother 06/07/2022 Assessment & Plan (07/28/2024 12:00 PM EDT): Patient returns today for follow-up for complicated by intrauterine growth restriction. Ultrasound performed in our office on 06 July demonstrated abdominal circumference at the 8th percentile. Patient has been at bedrest and receiving twice weekly testing. She noted good movement until last night at which time her she decreased movement. Ultrasound today demonstrates a fetus with overall growth at the 12 percentile and abdominal circumference at the 1st percentile. Amniotic fluid volume is normal as are umbilical artery Dopplers. BPP is 8 out of 8. Patient appears to have worsening intrauterine growth restriction. We would recommend continued bedrest. We would recommend increase nutrition. Patient reports that she does not smoke or vape. testing should continue twice a week until delivery. If no other complications arise we would recommend delivery at 37 weeks gestation. We have not scheduled the patient back with us but would be happy to see the patient if needed again. Patient was counseled extensively regarding movement will contact her provider immediately if she notices any decreased movement. We emphasized to the patient not to delay if she thinks movement is abnormal. Uterine size date discrepancy 05/31/19 Maternal care for poor growth in [facility] 05/04/2022 Social History Tobacco Use Types Packs/Day Years Used Date Smoking Tobacco: Never Smokeless Tobacco: Never Tobacco Cessation:Counseling Given: Not Answered Alcohol Use Standard Drinks/Week Comments Not Currently 0 (1 standard drink = 0.6 oz pur e alcohol) [facility] Utilities Answer Date Recorded In the past 12 months has [employer], gas, oil, or water [employer] threatened to shut off services in your home? No 07/04/2024 AUDIT-C Answer Date Recorded Q1: How often do you have a drink containing alcohol? Never 07/04/2024 Q2: How many drinks containi ng alcohol do you have on a typical day when you are drinking? Patient does not drink Q3: How often do you have si x or more drinks on one occasion? Never 07/04/2024 Overall Financial Resource Strain (CARDIA) Answe r Date Recorded How hard is it for you to pa y for the very basics like food, housing, medical care, and heating? Not hard at all 07/04/2024 PHQ-2 Answer Date Recorded Retired PHQ-9: Brief Depression Severity Measure Score 0 06/07/2022 [facility] - Occupational Stress Questionnaire Answer Date Recorded Do you feel stress - tense, restless, nervous, or anxious, or unable to sleep at night because your mind is troubled all the time - these days? Not at all 07/04/2024 Exercise Vital Sign Answer Date Recorde d On average, how many days pe r week do you engage in moderate to strenuous exercise (like a brisk walk)? 7 days 07/04/2024 On average, how many minutes do you engage in exercise at this level? 60 min 07/04/2024 Hunger Vital Sign Answer Date Recorded Within the past 12 months, y ou worried that your food would run out before you got the money to buy more. Never true 07/05/19 25 Within the past 12 months, t he food you bought just didn't last and you didn't have money to get more. Never true 07/04/2024 PRAPARE - Transportation Answer Date Re corded In the past 12 months, has l ack of transportation kept you from medical appointments or from getting medications? No 06/07 In the past 12 months, has l ack of transportation kept you from meetings, work, or from getting things needed for daily living? No 07/04/2024 Eclectic Depression Scale Answer Date Recorded Retired Eclectic Depression Score 0 06/13/2022 Retired EPD Scale: Thought of Harming Self Unrec ognized value 06/13/2022 Abuse Screen Answer Date Recorded Feels Unsafe at Home or Work/School no 07/04/2024 Feels Threatened by Someone no 06/07 Does Anyone Try to Keep You From Having Contact with Others or Doing Things Outside Your Home? no 07/04/2024 Physical Signs of Abuse Present no 07/04/2024 Housing Stability Answer Date Recorded Current Living Arrangements home 06/07 Potentially Unsafe Housing Conditions none 07/04/2024 Family and Community Support Answer Jerzy e Recorded If for any reason you need h elp with day-to-day activities such as bathing, preparing meals, shopping, managing finances, etc., do you get the help you need? I don't need any help 07/04/2024 How often do you feel lonely or isolated from those around you? Never 07/04/2024 Employment Answer Date Recorded Do you want help finding or keeping work or a job? I do not need or want help 08/01/2024 Disabilities Answer Date Recorded Difficulty Concentrating, Remembering or Making Decisions no 07/04/2024 Difficulty Managing Errands Independently no 07/04/2024 Education Answer Date Recorded Do you want help with school or training? For example, starting or completing job training or getting a high school diploma, GED or equivalent No 08/01/2024 Preferred Language Divehi 08/01/2024 PHQ-2 Answer Date Recorded Patient Health Questionnaire-2 Score 0 07/04/2024 Comments No Sex and Gender Information Value Date Recorded Sex Assigned at Not on file Legal Sex Female 8:14 AM EST Gender Identity Not on file Sexual Orientation Not on file Last Filed Vital Signs Vital Sign Reading Time Taken Comments Blood Pressure 114/75 08/01/2024 1:00 PM EDT Pulse 68 08/01/2024 1:00 PM EDT Temperature 36.7 C (98.1 F) 08/01/2024 1:00 PM EDT Respiratory Rate 18 08/01/2024 1:00 PM EDT Oxygen Saturation 96% 08/01/2024 1:00 PM EDT Inhaled Oxygen Concentration - - Weight 63 kg (139 lb) 08/01/2024 12:56 PM EDT Height 157.5 cm (5' 2 ) 08/01/2024 12:56 PM EDT Body Mass Index 25.42 08/01/2024 12:56 PM EDT Plan of Treatment Health Maintenance Due Date Last Done Comments Annual Gynecologic Pelvic an d Breast Exam 2002 ANNUAL PHYSICAL 05/03/2022 PAP SMEAR 09/21/2023 TDAP/TD VACCINES (2 - Td or Tdap) 01/06/2024 014 COVID-19 Vaccine (2023-2 5 season) 2024 INFLUENZA VACCINE 01/06/2025 02/23/2015, 01/05/2014 Pneumococcal Vaccine 0-49 Completed 2003, 01/03/2004, 03/22/2003, Additional history exists HPV VACCINES Completed 01/06/2015, 12/2013, 01/05/2014 MENINGOCOCCAL VACCINE Completed 01/21/2019, 014 MENINGOCOCCAL B VACCINE Completed 02/26/2019, 01/21 HEPATITIS C SCREENING Completed 10/11/2023 Insurance [facility] MEDICAID Advance Directives * CPR (Attempt to Resuscitate) (Latest Code Status on File) Date Activated Date Inactivated Comments 07/05/2024 9:30 AM 07/06/2024 6:31 PM Question Answer Comments Code Status (Patient has no pulse and is not breathing): CPR (Attempt to Resuscitate) Medical Interventions (Patie nt has pulse or is breathing): Full Support Level Of Support Discussed With: Patient * CPR (Attempt to Resuscitate) Date Activated Date Inactivated Comments 06/12/2022 11:58 AM 06/14/2022 2:02 PM Question Answer Comments Code Status (Patient has no pulse and is not breathing): CPR (Attempt to Resuscitate) Medical Interventions (Patie nt has pulse or is breathing): Full * CPR (Attempt to Resuscitate) Date Activated Date Inactivated Comments 06/12/2022 12:25 AM 06/12/2022 11:58 AM Question Answer Comments Code Status (Patient has no pulse and is not breathing): CPR (Attempt to Resuscitate) Medical Interventions (Patie nt has pulse or is breathing): Full Support Level Of Support Discussed With: Patient Release to patient: Routine Release * CPR (Attempt to Resuscitate) Date Activated Date Inactivated Comments 06/10/2022 9:37 AM 06/12/2022 12:25 AM Question Answer Comments Code Status (Patient has no pulse and is not breathing): CPR (Attempt to Resuscitate) Medical Interventions (Patie nt has pulse or is breathing): Full Support Level Of Support Discussed With: Patient Release to patient: Routine Release Care Teams Exceptional Student Education Aide Relationship Specialty Start Date End Date Alice Junior APRN [address] [place] [address] PCP - General Nurse Practitioner 12/31/23
--- OUTSIDE RECORDS SUMMARY | 2024-12-24 09:07 | XMS_ITS | Encounter Summary ---
Author Organization Healthcare Address [address] [place] [address] Care Team Providers Care Pediatric Allergist Name Role Phone Alice Junior APRN Primary Care Provider [phone] Encounter Details Date Type Department Care Team (Latest Contact Info) Description 12/15/2024 Travel Social History Tobacco Use Types Packs/Day Years [...] 07/26/2023 How often do you attend chur or baptism services? Never 07/26/2023 Do you belong to any clubs o r organizations such as rastafari groups, unions, fraternal or athletic groups, or [...] Recorded Patient Health Questionnaire-2 Score 0 12/15/2024 [facility] - Occupational Stress Questionnaire Answer Date Recorded [...] and Family Not on file 12/15/2024 Attends Anabaptism Services Not on file 12/15 Active Member [...] any time in the past 12 m [facility], were you homeless or living in a assisted (including now)? No 12/15/2024 [facility] Utilities Answer Date Recorded In the [...] Questionnaire -2 Score 0 12/15/2024 10:51 AM rGeg Aparicio * Question Answer Date of Assessment [...] Month) No 12/15/2024 10:51 AM Deedee Aparicio osm P 6. Suicidal Behavior (Lifetime) No 5 10:51 AM EDT Greg Eaton documented as [...] documented as of this encounter Care Teams Pediatric Allergist Relationship Specialty Start Date End Date Alice Junior APRN [address] [place] [address] PCP - General Family Medicine 05/27/23 documented as of this encounter
--- OUTSIDE RECORDS SUMMARY | 2024-12-24 09:07 | XMS_ITS | Encounter Summary ---
Author Organization Healthcare Address [address] [place] [address] Care Team Providers Care Senior Corporate Strategy Manager Name Role Phone Alice Junior APRN Primary Care Provider [phone] Reason for Visit * Reason Onset Date Comments Prior-authorization/insurance Verification 12/17 Encounter Details Date Type Department Care Team (Late st Contact Info) Description 12/17/2024 Telephone [facility] [address] [place] [address] Pamela Danielle MD [address] [place] [address] Prior-authorization/ins urance Verification Social History Tobacco Use Types Packs/Day Years [...] often do you attend chur ch or latter-day services? Never 07/26/2023 Do you belong to any clubs o r organizations such as pentecostal groups, unions, fraternal or athletic groups, or [...] Recorded Patient Health Questionnaire-2 Score 0 12/15/2024 [facility]at [facility] - [...] and Family Not on file 12/15/2024 Attends Confucianist Services Not on file 12/15 Active Member [...] any time in the past 12 m [facility], were you homeless or living in a nursing home (including now)? No 12/15/[address] [facility] Utilities Answer Date Recorded In [...] documented as of this encounter Care Teams Senior Corporate Strategy Manager Relationship Specialty Start Date End Date Alice Junior, NEGRA [address] [place] [phone] PCP - General Family Medicine 05/27/23 documented as of this encounter
--- OUTSIDE RECORDS SUMMARY | 2024-12-24 09:07 | XMS_ITS | Encounter Summary ---
Author Organization Healthcare Address [address] [place] [address] Care Team Providers Care Forestry Tree Pruner Name Role Phone Alice Junior APRN Primary Care Provider [phone] Encounter Details Date Type Department Care Team (Late st Contact Info) Description 01/16/2024 Outside Procedure External Location [address] [place] [address] Siobhan Strong, NEGRA, DNP [address] [place] [phone] Social History Tobacco Use Types Packs/Day Years [...] often do you attend chur ch or adventist services? Never 07/26/2023 Do you belong to any clubs o r organizations such as tenriism groups, unions, fraternal or athletic groups, or [...] Recorded Patient Health Questionnaire-2 Score 0 01/13/2024 [facility]at ional [facility] - Occupational Stress [...] place to sleep or slept in a [place] [facility] [place] facility (including now)? No 01/13/2024 PHQ-9 Answer Date [...] off services in your home? No 01/13/2024 Comments Yes Sex and Gender Information Value Date Recorded [...] AM EDT Narrative 01/16/2024 9:22 [place] [address] Name: AMELIA MCKEON Exam Date: 01/16/2024 : 2000 Age 23 years Gender: F Physician: Siobhan Strong Facility: [facility] Facility HSV: Outpatient Exam: RT UPPER QUADRANT [...] Electronically signed by:Adrianne Alejandre MD01/16/2024 09:19 AM EDT Dictated By: Adrianne Alejandre Transcribed By: Transcribed On: 01/16/2024 8:17 AM Electronically signed by: Adrianne Alejandre 01/16/2024 Thank you for referring AMELIA MCKEON to [facility]. Legally authenticated by KATHY MILLIGAN 2024-01-16 08:17:24 Procedure Note Provider, [facility] - 01/16/[address] [address] Name: AMELIA MCKEON Exam Date: 01/16/2024 : 2000 Age 23 years Gender: F Physician: Siobhan Strong Facility: [facility] Facility HSV: Outpatient Exam: RT UPPER QUADRANT [...] Thank you for referring AMELIA MCKEON to [facility]. Legally authenticated by KATHY MILLIGAN 2024-01-16 08:17:24 us Siobhan Strong SERVICE CONTROL OPERATOR, DNP IMG US PROCEDURES Fin al Result documented in this encounter Visit Diagnoses Not on filedocumented in this encounter Additional Health Concerns Assessment Noted Time PHQ-9 Depression Total Score: 12 06/23/ 024 9:50 AM EDT A Body Mass Index follow-up plan has been documented for the patient 01/13/2024 2:14 PM EDT documented as of this encounter Care Teams Forestry Tree Pruner Relationship Specialty Start Date End Date Alice Junior APRN [address] [place] [address] PCP - General Family Medicine 05/27/23 documented as of this encounter
--- OUTSIDE RECORDS SUMMARY | 2024-12-24 09:07 | XMS_ITS | Encounter Summary ---
Author Organization Healthcare Address [address] [place] [address] Care Team Providers Care Driver/Guide Name Role Phone Alice Junior APRN Primary Care Provider [phone] Encounter Details Date Type Department Care Team (Late st Contact Info) Description 12/15/2024 Orders Only [facility] [address] [place] [address] Pamela Danielle MD [address] [place] [address] Acute midline thoracic back pain (Primary Dx); Mid back pain Social History Tobacco Use Types Packs/Day Years [...] often do you attend chur ch or jain services? Never 07/26/2023 Do you belong to any clubs o r organizations such as spiritism groups, unions, fraternal or athletic groups, or [...] Recorded Patient Health Questionnaire-2 Score 0 12/15/2024 [facility] Occupat ional Health - Occupational Stress [...] and Family Not on file 12/15/2024 Attends Gnosticist Services Not on file 12/15 Active Member [...] any time in the past 12 m [facility], were you homeless or living in a correction (including now)? No 12/15/2024 [facility] [...] Not difficult at all 12/15/2024 10:51 AM EDT Greg Bradshaw * Question Answer Date of Assessment Author [...] Diagnosis Acute midline thoracic back pain- Primary Mid back pain documented in this encounter Additional Health Concerns Assessment Noted Time PHQ-9 Depression Total Score: 0 12/16/19 25 10:51 AM EDT A Body Mass Index follow-up plan has been documented for the patient 12/15/2024 11:22 AM EDT documented as of this encounter Care Teams Driver/Guide Relationship Specialty Start Date End Date Alice Junior APRN [address] [place] [phone] PCP - General Family Medicine 05/27/23 documented as of this encounter
--- OUTSIDE RECORDS SUMMARY | 2024-12-24 09:07 | XMS_ITS | Encounter Summary ---
Author Organization Healthcare Address [address] [place] [address] Care Team Providers Care Cloth Brushing And Sueding Supervisor Name Role Phone Alice Junior APRN Primary Care Provider [phone] Encounter Details Date Type Department Care Team (Late st Contact Info) Description 12/15/2024 Telephone [facility] [address] [place] [address] Alice Junior APRN [address] [place] [address] Social History Tobacco Use Types [...] often do you attend chur ch or taoist services? Never 07/26/2023 Do you belong to any clubs o r organizations such as zoroastrian groups, unions, fraternal or athletic groups, or [...] Recorded Patient Health Questionnaire-2 Score 0 12/15/2024 [facility] - Occupational Stress Questionnaire Answer Date [...] and Family Not on file 12/15/2024 Attends Hinduism Services Not on file 12/15 Active Member [...] any time in the past 12 m [facility], were you homeless or living in a senior care (including now)? No 12/15/2024 [facility] Utilities Answer Date Recorded In the [...] Greg Eaton documented as of this encounter Miscellaneous Notes * Telephone Encounter - Aaliyah rS - 12/15/2024 3:09 PM EDT RX sent ok per Dr. Danielle. Called pt and informed RX sent. Pt voiced understanding. documented in this encounter Plan of Treatment Not on file documented as of this encounter Visit Diagnoses Not on filedocumented in this encounter Additional Health Concerns Assessment Noted Time PHQ-9 Depression Total Score: 0 12/16/19 25 10:51 AM EDT A Body Mass Index follow-up plan has been documented for the patient 12/15/2024 11:22 AM EDT documented as of this encounter Care Teams Cloth Brushing And Sueding Supervisor Relationship Specialty Start Date End Date Alice Junior APRN [address] [phone] PCP - General Family Medicine 05/27/23 documented as of this encounter
--- OUTSIDE RECORDS SUMMARY | 2024-12-24 09:07 | XMS_ITS | Clinical Summary ---
Author Organization Healthcare Address [address] [place] [address] Care Team Providers Care Chief Compliance Officer Name Role Phone Vernon Alice Pena APRN Primary Care Provider [phone] Allergies No known active allergies Medications Vienva 0.1-20 MG-MCG tablet Take 1 tablet by mouth daily. 5 Active busPIRone (Buspar) 7.5 MG tablet Take 1 tablet by mouth 2 times a day as needed (anxiety/ir ritability) . 180 tablet 3 5 Active escitalopram (Lexapro) 20 MG tablet Take 1 tablet by mouth nightly. 90 tablet 3 5 Active ibuprofen 600 MG tablet Take 1 tablet by mouth every 6 hours as needed for mild pain. 90 tablet 1 5 Active metaxalone (Skelaxin) 800 MG tabletIndicatio ns:Acute midline thoracic back pain Take 1 tablet by mouth 3 times a day as needed for muscle spasms. 30 tablet 5 02/14/20 25 Active cyclobenzaprine (Flexeril) 10 MG tabletIndicatio ns:Acute midline thoracic back pain,Mid back pain Take 1 tablet by mouth 3 times a day as needed for muscle spasms. 30 tablet 5 02/14/20 25 Active escitalopram (Lexapro) 20 MG tabletIndicatio ns:Depression with anxiety,Irritab ility Take 1 tablet (20 mg) by mouth every night. 90 tablet 3 4 12/16/19 25 Discontinu ed(Reorder ) busPIRone (Buspar) 7.5 MG tabletIndicatio ns:Depression with anxiety,Irritab ility Take 1 tablet (7.5 mg) by mouth 2 (two) times a day if needed (anxiety/ir ritability) . 180 tablet 3 4 12/16/19 25 Discontinu ed(Reorder ) Active Problems Problem Noted Date Diagnosed Date Anemia, unspecified 05/27/2023 Encounters Date Type Department Care Team Description 12/22/2024 Orders Only [facility] [address] [place] [address] Alice Junior APRN Mid back pain (Primary Dx) 12/17/2024 Telephone [facility] [address] [place] [address] Pamela Danielle MD Prior-authorization/ insurance Verification 12/16/2024 Results Follow-Up [facility] [address] [place] [address] Pamela Danielle MD 12/15/2024 10:40 AM EDT Office Visit [facility] [address] [place] [address] Pamela Danielle MD Acute midline thoracic back pain (Primary Dx); Anxiety 12/15/2024 Telephone [facility] [address] [place] [address] Pamela Danielle MD Med Refill 12/15/2024 Orders Only [facility] [address] [place] [address] Pamela Danielle MD Acute midline thoracic back pain (Primary Dx); Mid back pain 12/15/2024 Outside Procedure External Location [address] [place] [address] Pamela Danielle MD 12/15/2024 Telephone [facility] [address] [place] [address] Alice Junior Becky, STAVE BLOCK SPLITTER 12/15/2024 Travel from Last 3 Months Immunizations Immunization Administration [...] week 07/26/2023 How often do you attend [facility] or baptism services? Never 07/26/2023 Do you belong to any clubs o r organizations such as christianity groups, unions, fraternal or athletic groups, or [...] Recorded Patient Health Questionnaire-2 Score 0 12/15/2024 [facility] - Occupational Stress Questionnaire Answer Date Recorded [...] and Family Not on file 12/15/2024 Attends Shinto Services Not on file 12/15 Active Member [...] any time in the past 12 m [facility], were you homeless or living in a assisted (including now)? No 12/15/2024 [facility] Utilities Answer Date Recorded In the [...] Mass Index 22.06 12/15/2024 10:41 AM EDT Plan of Treatment Health Maintenance Due Date Last Done Comments [facility]-Chlamydia and Gonorrhea Screening 2002 [facility]-HIV Screening 2002 [facility]-Pap Smear 09/21/2023 [facility]-DTaP,Tdap,and Td Vaccines (7 - Td or Tdap) 01/06/2024 01/05/2014, 09/27/2006, 04/04/2004, Additional history exists [id number] Vaccine ( season) 2024 [facility]-Influenza Vaccine (#1) 2024 02/23/2015, [facility]- SDOH Screenings 06/14/2025 [facility]-Adult SDOH Screenings 06/14/2025 12/15/2024 [facility]-/Child/Adol SDOH Screenings 06/14/2025 12/15/2024 [facility]-Depression Screening 12/15/2025 12/15/2024, 0912/2024 [facility]-Zoster Vaccines (1 of 2) 2052 09/27/2006, [...] 12/2013, 01/05/2014 [facility]-Hepatitis C Screening Completed 10/11/2023 [facility]-Rotavirus Vaccines Aged Out No lo nger eligible based on patient's age to complete this topic Procedures Procedure Name Priority Date/Time Associated Diagnosis Comments XR THORACIC SPINE 2 VIEWS 12/15/2024 11:46 AM EDT ACUTE HEPATITIS PANEL Routine 10/11/2023 2:00 PM EDT RUQ pain from Last 3 Months or Most Recently Relevant to Health Maintenance Results * XR Thoracic Spine 2 Views (12/15/2024 11:46 AM EDT) Anatomical Region Laterality Modality Spine, T-spine Digital Radiogra phy 12/15/2024 11:4 6 AM EDT Narrative 12/15/2024 1:15 [place] [address] Name: AMELIA MCKEON Exam Date: 12/15/2024 : 2000 Age 24 years Gender: F Physician: PAMELA DANIELLE Facility: [facility] Facility HSV: Outpatient Exam: THORACIC SPINE 2V [...] Thank you for referring AMELIA MCKEON to [facility]. Legally authenticated by MARYBEL TIAN 2024-12-15 13:11:58 Procedure Note Provider, [facility] - 12/15/2024 [place] [address] Name: AMELIA MCKEON Exam Date: 12/15/2024 : 2000 Age 24 years Gender: F Physician: APMELA DANIELLE Facility: [facility] Facility HSV: Outpatient Exam: THORACIC SPINE 2V [...] Thank you for referring AMELIA MCKEON to [facility]. Legally authenticated by MARYBEL TIAN 2024-12-15 13:11:58 Pamela Danielle MD IMG XR PROCEDURES Final Re sult * Acute Hepatitis Panel (10/11/2023 2:00 PM EDT) Hepatitis B Surf Antigen Negative Negative 10/11/2023 7:38 PM EDT [facility] Hepatitis C Antibody Negative Negative 10/11/2023 7:38 PM EDT [facility] Hepatitis A Antibody IgM Negative Negative 10/11/2023 7:38 PM EDT [facility] Hepatitis B Core Antibody IgM Negative Negative 10/11/2023 7:38 PM EDT [facility] Blood Venous blood specimen / Unknown Venipuncture / Unknown 10/11/2023 2:00 PM EDT 10/11/2023 2:00 PM EDT us Stacia Alcantar MD LAB BLOOD ORDERABLES Final Re sult [facility] [address] [place] [address] from Last 3 Months or Most Recently Relevant to Health Maintenance Insurance [employer] Care Teams Chief Compliance Officer Relationship Specialty Start Date End Date Alice Junior APRN [address] [place] [address] PCP - General Family Medicine 05/27/23
--- OUTSIDE RECORDS SUMMARY | 2024-12-24 09:07 | XMS_ITS | Encounter Summary ---
Author Organization Healthcare Address [address] [place] [address] Care Team Providers Care Recreation Engineer Name Role Phone Alice Junior APRN Primary Care Provider [phone] Encounter Details Date Type Department Care Team (Late st Contact Info) Description 12/16/2024 Results Follow-Up [facility] [address] [place] [address] Pamela Danielle MD [address] [place] [address] Social History Tobacco Use Types [...] often do you attend chur ch or shinto services? Never 07/26/2023 Do you belong to any clubs o r organizations such as caodaism groups, unions, fraternal or athletic groups, or [...] Recorded Patient Health Questionnaire-2 Score 0 12/15/2024 [facility] - Occupational Stress Questionnaire Answer Date [...] and Family Not on file 12/15/2024 Attends Moravian Services Not on file 12/15 Active Member [...] any time in the past 12 m [facility], were you homeless or living in a detention (including now)? No 12/15/2024 [facility] Utilities Answer Date Recorded In the [...] documented as of this encounter Care Teams Recreation Engineer Relationship Specialty Start Date End Date Alice Junior APRN [address] [place] [address] PCP - General Family Medicine 05/27/23 documented as of this encounter
--- OUTSIDE RECORDS SUMMARY | 2024-12-24 09:07 | XMS_ITS | Encounter Summary ---
Author Organization Healthcare Address [address] [place] [address] Care Team Providers Care Travel Assistant Name Role Phone Alice Junior APRN Primary Care Provider [phone] Reason for Visit * Reason Onset Date Comments Med Refill 12/15/2024 Encounter Details Date Type Department Care Team (Late st Contact Info) Description 12/15/2024 Telephone [facility] [address] [place] [address] Pamela Danielle MD [address] [place] [address] Med Refill Social History Tobacco Use Types Packs/Day Years [...] often do you attend chur ch or druze services? Never 07/26/2023 Do you belong to any clubs o r organizations such as voodoo groups, unions, fraternal or athletic groups, or [...] 12/15/2024 [facility] - Occupational [...] and Family Not on file 12/15/2024 Attends Episcopalian Services Not on file 12/15 Active Member [...] any time in the past 12 m [facility], were you homeless or living in a fdc (including now)? No 12/15/2024 [facility] Utilities Answer Date Recorded In the [...] No 12/15/2024 10:51 AM EDT Deedee Eaton 6. Suicidal Behavior (Lifetime) No 10:51 AM EDT Greg Eaton documented as of this encounter Miscellaneous Notes * Telephone Encounter - Eliane Mayer - 12/22/2024 9:17 AM EDT Order entered for PT, patient advised. * Telephone Encounter - Greg Eaton - 12/16/2024 5:19 PM EDT Attempted to contact. Left VM documented in this encounter Plan of Treatment Not on file documented as of this encounter Visit Diagnoses Not on filedocumented in this encounter Additional Health Concerns Assessment Noted Time PHQ-9 Depression Total Score: 0 12/16/19 25 10:51 AM EDT A Body Mass Index follow-up plan has been documented for the patient 12/15/2024 11:22 AM EDT documented as of this encounter Care Teams Travel Assistant Relationship Specialty Start Date End Date Alice Junior, NEGRA [address] [address] PCP - General Family Medicine 05/27/23 documented as of this encounter
--- OUTSIDE RECORDS SUMMARY | 2024-12-24 09:07 | XMS_ITS | Encounter Summary ---
Author Organization [facility] Address [address] [place] [address] Care Team Providers Care Retirement Consultant Name Role Phone Alice Junior APRN Primary Care Provider [phone] Reason for Referral * Consultation (Routine) - Authorized Specialty Diagnoses / Procedures Referred By Vi page Referred To Contact Physical Therapy Diagnoses Mid back pain [place] [address] Phone: tel: fax: Referral ID Status Reason Start Date Expiration Date Visits Requested Visits Authorized [id number] Authorized Consult and Treat 12/22/2024 06/23/2026 1 1 Scheduling Instructions [facility] Encounter Details Date Type Department Care Team (Late st Contact Info) Description 12/22/2024 Orders Only [facility] [address] [place] [address] Alice Junior APRN [address] [place] [address] Mid back pain (Primary Dx) Social History Tobacco Use Types Packs/Day Years [...] How often do you attend chur or samaritan services? Never 07/26/2023 Do you belong to any clubs o r organizations such as religion groups, unions, fraternal or athletic groups, or [...] Recorded Patient Health Questionnaire-2 Score 0 12/15/2024 [facility] - [...] and Family Not on file 12/15/2024 Attends Church Services Not on file 12/15 Active Member [...] any time in the past 12 m [facility], were you homeless or living in a jail (including now)? No 12/15/2024 [facility] Utilities Answer Date Recorded In the past [...] as of this encounter Plan of Treatment Scheduled Referrals Name Type Priority Associated Diagnoses Order Schedule Ambulatory referral to Physical Therapy Outpatient Referral Routine Mid back pain 1 Occurrences starting 12/22/2024 until 06/25/2026 documented as of this encounter Visit Diagnoses Diagnosis Mid back pain- Primary documented in this encounter Additional Health Concerns Assessment Noted Time PHQ-9 Depression Total Score: 0 12/16/19 25 10:51 AM EDT A Body Mass Index follow-up plan has been documented for the patient 12/15/2024 11:22 AM EDT documented as of this encounter Care Teams Retirement Consultant Relationship Specialty Start Date End Date Alice Junior APRN [address] [place] [address] PCP - General Family Medicine 05/27/23 documented as of this encounter
--- NOTE | 2024-12-24 09:30 | US_ITS ---
PROCEDURE: US TRANSVAGINAL CLINICAL INDICATION: abnormal uterine bleeding COMPARISON: No exams were available for comparison FINDINGS: Transvaginal sonographic images of the pelvis were obtained. UTERUS: 8.4cm x 6.2cmx 4.1cm anteverted with a combined endometrial thickness of 3.8mm. LEFT OVARY: 2.6 cmx2.3cmx1.9cm with a volume of 6ml. There are multiple small peripheral follicles giving the ovary a polycystic appearance. RIGHT OVARY: 3.2cmx 2.4cmx2.6 cm with a volume of 10.8ml. There are multiple small peripheral follicles giving the ovary a polycystic appearance. Both ovaries are seen and appear polycystic. Doppler flow to both ovaries are seen. There is no fluid in the cul-de-sac. IMPRESSION: 1. Anteverted uterus normal in shape and size. The endometrium is thin. 2. Both ovaries are seen and appear polycystic. 3. No fluid in the cul-de-sac. Dictated by: Hill Duffy MD 12/25/2024 08:07 Hill Duffy MD in OV 12/25/2024 08:07
== END 2024-12-24 23:59 | disposition home or self-care (01) ==
LOC: RAD 08:51
PROVIDERS: PCP Nurse Practitioner Family; Visit Provider Obstetrics & Gynecology
DX: N85.4 Malposition of uterus (principal); E28.2 Polycystic ovarian syndrome; M62.89 Other specified disorders of muscle
CPT/HCPCS: 76830